=== PATIENT | female | born 1975 | race Caucasian/White ===

== ENCOUNTER → 2016-10-01 | Outpatient (CLI) | payer OTHER ==
--- OUTSIDE RECORDS SUMMARY | 2016-10-01 12:03 | XMS REPORT ---
Author Author ANDREA DELONG e[employer] Address Unknown Phone Unavailable Care Team Providers Care Dope Pourer Name Role Phone ANDREA DELONG Unavailable Allergies, Adverse Reactions, Alerts Substance Reaction Event Type Ambien vomiting Drug Allergy Problems Problem Type Condition Code Onset Dates Condition Status Assessment Back pain M54.9 Active Assessment HTN (hypertension) I10 Active Assessment Depression with anxiety F41.8 Active Problem Depression with anxiety F41.8 Active Problem HTN (hypertension) I10 Active Problem Anxiety disorder, unspecified F41.9 Active Problem Migraine 346.90 Active Problem Essential hypertension, malignant 401.0 Active Problem Migraine G43.909 Active Problem Back pain M54.9 Active Medications Medication Code System Code Instructions Start Date End Date Status Dosage Baclofen [facility] [address]-86 10 MG Orally Three times a day as needed for back spasms Jul 19, 2015 1 tablet with food or milk Pristiq [facility] [address]-88 50 MG Orally Once a day Jul 19, 2015 1 tablet Pravastatin Sodium [facility] [address]-02 20 MG Orally Once a day Jul 14, 2015 1 tablet Xpfeklzrjt-KHCX-Efrvkaga [facility] [address]-43 50-325-40 MG Orally at onset of headache may repeat in 2hrs max of 6 tablets in 24hrs 1 tablet Topamax [facility] [address]-12 25 MG Orally Twice a day April 18, 2015 1 tablet Lisinopril [facility] [address]-90 10 MG Orally Once a day Jul 12, 2015 1 tablet Gabapentin [facility] [address]-54 300 MG Orally Three times a day Jul 12, 2015 1 capsule Cholecalciferol [facility] [address] UNIT Orally once weekly Jul 14, 2015 Oct 06, 2015 1 tablet Levothyroxine Sodium [facility] [address]-53 75 MCG Orally Once a day Jul 14, 2015 1 tablet Omeprazole [facility] [address]-04 20 MG Orally Once a day 1 capsule Procedures Procedure Coding System Code Date Office Visit, Est Pt., Level 3 CPT-4 38388 Jul 19, 2015 URINALYSIS, AUTO, W/O SCOPE CPT-4 67402 Jul 19, 2015 Vital Signs Date/Time: Jul 19, 2015 Temperature 99.3 F Weight 458.4 lbs Height 64.5 in BMI 77.46 Index Blood Pressure Diastolic 80 mmHg Blood Pressure Systolic 128 mmHg Cardiac Monitoring Heart Rate 88 bpm Results Name Result Date Reference Range Unit Abnormality Flag UA LONG DIP (IN HOUSE) Summary Purpose eClinicalWorks Submission
--- NOTE | 2016-10-02 19:31 | Diagnostic Imaging Report ---
Bilateral screening mammogram. The current study was also evaluated with a Computer Aided Detection (CAD) system. INDICATION: Screening. No current complaints stated on the questionnaire. COMPARISON: None. This is a baseline study. FINDINGS: The breasts are composed of scattered fibroglandular densities. There are no masses, architectural distortion, or suspicious cluster of calcification. IMPRESSION: No mammographic evidence of malignancy. Annual screening mammograms recommended. ACR BI-RADS Category 1: Negative. Result letter will be mailed to the patient. Note: At least 10% of breast cancer is not imaged by mammography. Dictated by: Dictated on workstation # [id number]
== END ==
LOC: RAD 12:00
PROVIDERS: ATTEND Nurse Practitioner Adult Health
DX: Z12.31 Encounter for screening mammogram for malignant neoplasm of breast (principal)

== ENCOUNTER 2022-08-11 22:07 | Inpatient (IN) | payer OTHER ==
[~2022-08-11] VITALS: Ht 162.6 cm; Wt 189.9 kg
[2022-08-11 23:38] LABS: ALBUMIN 3.1 GM/DL (3.2-4.5)
[2022-08-11 23:41] LABS: BASOPHILS # (AUTO) 0.1 10^3/uL (0.0-0.1); BASOPHILS % (AUTO) 1 % (0-10); EOSINOPHILS # (AUTO) 0.1 10^3/uL (0.0-0.3); EOSINOPHILS % (AUTO) 1 % (0-10); HEMATOCRIT 46 % (35-52); HEMOGLOBIN 15.4 g/dL (11.5-16.0); LYMPHOCYTES % (AUTO) 20 % (12-44); MEAN CORPUSCULAR HEMOGLOBIN 28 pg (25-34); MEAN CORPUSCULAR HGB CONC 34 g/dL (32-36); MEAN CORPUSCULAR VOLUME 82 fL (80-99); MEAN PLATELET VOLUME 11.6 fL (9.0-12.2); MONOCYTES # (AUTO) 1.1 10^3/uL (0.0-1.0); MONOCYTES % (AUTO) 11 % (0-12); NEUTROPHILS # (AUTO) 6.7 10^3/uL (1.8-7.8); NEUTROPHILS % (AUTO) 67 % (42-75); PLATELET COUNT 318 10^3/uL (130-400); TOTAL PROTEIN 7.2 GM/DL (6.4-8.2)
[2022-08-11 23:42] LABS: PROTHROMBIN TIME PATIENT 13.8 SEC (12.2-14.7)
[2022-08-11 23:44] LABS: CREATININE SERUM 1.11 MG/DL (0.60-1.30)
[2022-08-11 23:47] LABS: MAGNESIUM 1.4 MG/DL (1.6-2.4)
[2022-08-12] LABS: POTASSIUM 2.5 MMOL/L (3.6-5.0)
--- NOTE | 2022-08-12 00:54 | ED Syncope ---
General Chief Complaint: Dizziness/Syncope Stated Complaint: WEAKNESS Nursing Triage Note: Pt to ED 4 via EMS. [facility] family when she felt dizzy and passed out. Pt reports LOC, states and son lowered her to floor, denies pain, states she is tingling all over. Source of Information: Patient History of Present Illness Date Seen by Provider: Aug 11, 2022 Time Seen by Provider: 23:25 Initial Comments This 47-year-old woman presents to the emergency room via EMS after having a syncopal episode at the [facility]. She does not recall the incident but does note feeling dizzy just prior to that. Earlier in the day she had felt short of breath. She denies having any chest pain. She gives a history of significant gastrointestinal problems including frequent nausea and vomiting which she relates to initiation of Ozempic earlier in the year. She has been feeling ill since March. Problem started shortly after beginning Ozempic and have continued long after stopping. She has required medical attention for severe electrolyte disturbances in the recent past. She has trouble with eating and drinking causing significant unintentional weight loss. She has no known cardiac disease or history of arrhythmias. She denies any chest pain at this time. She has some minor pain around her coccyx and her lower back. reports she was guided to the floor. She did not strike her head or neck. The syncope was jaycee ef. She does not believe any of her injuries are significant enough to require imaging. Allergies and Home Medications Allergies Coded Allergies: NKANo Known Allergies (Verified Allergy, Unknown, 03/11/07) Patient Home Medication List Home Medication List Reviewed: Yes Review of Systems Constitutional: see HPI, weakness EENTM: no symptoms reported Respiratory: see HPI Cardiovascular: see HPI Gastrointestinal: see HPI Genitourinary: no symptoms reported : No Musculoskeletal: see HPI Skin: no symptoms reported Psychiatric/Neurological: No Symptoms Reported Past Tcdyrpm-Gqzyaj-Urweko Hx Patient Social History Tobacco Use?: No Smoking Status: Never a Smoker Smokeless Tobacco Frequency: Never a User Use of E-Cig and/or Vaping dev: No Use of E-Cig and/or Vaping Chaz: Never a User Substance use?: No Alcohol Use?: No Pt feels they are or have been: No Immunizations Up To Date Influenza Vaccine Up-to-Date: No; Not Current First/Initial COVID19 Vaccinat: 2020 COVID19 Vaccine [place] Tender: DSTLD Past Medical History Surgeries: Yes (Cyst removed from back and knee) Section Respiratory: No Cardiac: No Neurological: No : No Last Menstrual Period: Jul 01, 2022 Genitourinary: No Gastrointestinal: No Musculoskeletal: No Endocrine: Yes Hypothyroidsim, Diabetes, Non-Insulin dep HEENT: No Cancer: No Psychosocial: No Physical Exam Vital Signs Vital Signs - First Documented 08/11/22 22:10 Temp 35.3 Pulse 57 Resp 16 B/P (MAP) 108/54 (72) Pulse Ox 99 O2 Delivery Room Air Capillary Refill : Height, Weight, BMI Height: '" Weight: lbs. oz. kg; 65.00 BMI Method: General Appearance: No Apparent Distress, WD/WN, Obese HEENT: PERRL/EOMI, Normal ENT Inspection Neck: Normal Inspection; No JVD Cardiovascular: Regular Rate, Rhythm, No Edema, No Murmur Respiratory: Lungs Clear, Normal Breath Sounds, No Accessory Muscle Use Gastrointestinal: Normal Bowel Sounds, Soft; No Distended; Tenderness (Very slight tenderness in the central abdomen) Back: Normal Inspection, Vertebral Tenderness (Slight tenderness over the lumbar region) Extremities: Normal Inspection, No Pedal Edema Neurologic/Psychiatric: Alert, Oriented x3, No Motor/Sensory Deficits, Normal Mood/Affect, 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 Cranial Nerves: Normal Hearing, Normal Speech, PERRL Motor/Sensory: No Motor Deficit, No Sensory Deficit Skin: Normal Color, Warm/Dry Progress/Results/Core Measures Results/Orders Lab Results Laboratory Tests Test 08/11/22 22:20 08/12/22 01:12 Range/Units White Blood Count 10.0 4.3-11.0 10^3/uL Red Blood Count 5.58 H 3.80-5.11 10^6/uL Hemoglobin 15.4 11.5-16.0 g/dL Hematocrit 46 35-52 % Mean Corpuscular Volume 82 80-99 fL Mean Corpuscular Hemoglobin 28 25-34 pg Mean Corpuscular Hemoglobin Concent 34 32-36 g/dL Red Cell Distribution Width 16.3 H 10.0-14.5 % Platelet Count 318 130-400 10^3/uL Mean Platelet Volume 11.6 9.0-12.2 fL Immature Granulocyte % (Auto) 0 % Neutrophils (%) (Auto) 67 42-75 % Lymphocytes (%) (Auto) 20 12-44 % Monocytes (%) (Auto) 11 0-12 % Eosinophils (%) (Auto) 1 0-10 % Basophils (%) (Auto) 1 0-10 % Neutrophils # (Auto) 6.7 1.8-7.8 10^3/uL Lymphocytes # (Auto) 2.0 1.0-4.0 10^3/uL Monocytes # (Auto) 1.1 H 0.0-1.0 10^3/uL Eosinophils # (Auto) 0.1 0.0-0.3 10^3/uL Basophils # (Auto) 0.1 0.0-0.1 10^3/uL Immature Granulocyte # (Auto) 0.0 0.0-0.1 10^3/uL Prothrombin Time 13.8 12.2-14.7 SEC INR Comment 1.0 0.8-1.4 Activated Partial Thromboplast Time 28 24-35 SEC Sodium Level 136 135-145 MMOL/L Potassium Level 2.5 *L 3.6-5.0 MMOL/L Chloride Level 86 L 98-107 MMOL/L Carbon Dioxide Level 28 21-32 MMOL/L Anion Gap 22 H 5-14 MMOL/L Blood Urea Nitrogen 9 7-18 MG/DL Creatinine 1.11 0.60-1.30 MG/DL Estimat Glomerular Filtration Rate 62 BUN/Creatinine Ratio 8 Glucose Level 165 H 70-105 MG/DL Calcium Level 9.0 8.5-10.1 MG/DL Corrected Calcium 9.7 8.5-10.1 MG/DL Magnesium Level 1.4 L 1.6-2.4 MG/DL Total Bilirubin 2.0 H 0.1-1.0 MG/DL Aspartate Amino Transf (AST/SGOT) 40 H 5-34 U/L Alanine Aminotransferase (ALT/SGPT) 22 0-55 U/L Alkaline Phosphatase 72 40-136 U/L Myoglobin 186.3 H 10.0-92.0 NG/ML Troponin I 0.030 H < 0.028 <0.028 NG/ML Total Protein 7.2 6.4-8.2 GM/DL Albumin 3.1 L 3.2-4.5 GM/DL Serum Alcohol < 10 <10 MG/DL Thyroid Stimulating Hormone (TSH) 2.17 0.35-4.94 UIU/ML Free Thyroxine 1.03 0.70-1.48 NG/DL My Orders Orders - YASMINE WASHBURN MD Ekg Tracing (08/11/22 22:38) Cbc With Automated Diff (08/11/22:) Magnesium (08/11/22) Comprehensive Metabolic Panel (08/11/22) Myoglobin Serum (08/11/22) Protime With Inr (08/11/22) Partial Thromboplastin Time (08/11/22) O2 (08/11/22) Monitor-Rhythm Ecg Trace Only (08/11/22) Lipid Panel (08/12/22 06:00) Ed Iv/Invasive Line Start (08/11/22:) Troponin I [place] (08/11/22:) Alcohol (08/11/22) Drug Screen Stat (Urine) (08/11/22) Chest 1 View, Ap/Pa Only (08/12/22 00:01) Potassium Cl 10meq/50ml Ivpb (Kcl 10 Meq (08/12/22 01:00) Ns Iv 1000 Ml (Sodium Chloride 0.9%) (08/12/22 01:00) Magnesium 1 Gm/100 Ml Ivpb (Magnesium [place] (08/12/22 01:00) Thyroid Stimulating Hormone (08/12/22 01:19) Troponin I [place] (08/12/22 01:25) Free T4 (Free Thyroxine) (08/12/22 01:19) Potassium Cl 10meq/50ml Ivpb (Kcl 10 Meq (08/12/22 02:00) Medications Given in ED Current Medications Medications Dose Ordered Sig/Anel Route Start Time Stop Time Status Last Admin Dose Admin Magnesium Sulfate/ Dextrose 100 ml @ 100 mls/hr ONCE ONCE IV 08/12/22 01:00 08/12/22 01:59 DC 08/12/22 01:11 100 MLS/HR Potassium Chloride 50 ml @ 50 mls/hr ONCE ONCE IV 08/12/22 01:00 08/12/22 01:59 DC 08/12/22 01:11 50 MLS/HR Potassium Chloride 50 ml @ 50 mls/hr ONCE ONCE IV 08/12/22 02:00 08/12/22 02:59 DC 08/12/22 02:15 50 MLS/HR Vital Signs/I&O 08/11/22 22:10 Temp 35.3 Pulse 57 Resp 16 B/P (MAP) 108/54 (72) Pulse Ox 99 O2 Delivery Room Air Blood Pressure Mean: 72 Progress Progress Note : Progress Note Patient was found to have severe electrolyte abnormalities with hypokalemia and hypomagnesemia. Replacement was started in the emergency room. She received potassium 20 mEq by IV route and magnesium sulfate 1 g by IV route. Electrolyte replacement was ordered to continue after admission. Initial troponin was slightly above the detectable range. Repeat troponin was negative. Patient was ultimately admitted for further monitoring, electrolyte replacement, and cardiology consultation. She had no further syncopal events in the emergency room. We discussed CODE STATUS and she wishes to remain full code. Initial ECG Impression Date: Aug 11, 2022 Initial ECG Impression Time: 22:46 Initial ECG Rate: 67 Initial ECG Rhythm: Normal Sinus Comment Sinus rhythm with no ST elevation or depression. No abnormal intervals. Minimal left axis deviation. Diagnostic Imaging Diagonstic Imaging: Xray Plain Films/CT/US/NM/MRI: chest Comments Chest x-ray viewed by me. Report not yet available. No acute abnormalities appreciated. Departure Communication (Admissions) Time/Spoke to Admitting Phy: 02:40 Dr. Dexter Impression Primary Impression: Syncope Qualified Codes: R55 - Syncope and collapse Additional Impressions: Hypokalemia Hypomagnesemia Nausea & vomiting Qualified Codes: R11.2 - Nausea with vomiting, unspecified Disposition: ADMITTED INPATIENT Condition: Improved Admissions Decision to Admit Reason: Admit from ER (General) Decision to Admit/Date: Aug 12, 2022 Time/Decision to Admit Time: 02:40 Departure-Patient Inst. Referrals: STACI ROCA DO (PCP) Primary Care Physician VENTURA ESPARZA (Family) Primary Care Physician Copy Copies To 1: WILBUR ALBRIGHT MD, JOSHUA T MD Aug 12, 2022 00:54
[2022-08-12] MEDS ORDERED: MAGNESIUM 1 GM/100 ML IVPB 100 ML IV ONE (01:00)
[2022-08-12] MEDS ORDERED: NS IV 1000 ML 1,000 ML IV SCH (01:00)
[2022-08-12] MEDS ORDERED: POTASSIUM CL 10MEQ/50ML IVPB 50 ML IV ONE ×2 (01:00→02:00)
[2022-08-12 02:00] LABS: FREE T4 (FREE THYROXINE) 1.03 NG/DL (0.70-1.48)
[2022-08-12] MEDS ORDERED: NS IV 1000 ML 1,000 ML ONE (02:58)
[2022-08-12] MEDS ORDERED: NS IV 1000 ML 1,000 ML IV ONE ×2 (03:00→07:58)
[2022-08-12] MEDS ORDERED: fentaNYL INJ 100 MCG/2 ML AMP ONE ×2 (03:59→04:39)
[2022-08-12 04:25] LABS: BASOPHILS # (AUTO) 0.1 10^3/uL (0.0-0.1); BASOPHILS % (AUTO) 1 % (0-10); EOSINOPHILS # (AUTO) 0.1 10^3/uL (0.0-0.3); EOSINOPHILS % (AUTO) 0 % (0-10); HEMATOCRIT 44 % (35-52); HEMOGLOBIN 14.7 g/dL (11.5-16.0); LYMPHOCYTES # (AUTO) 8.1 10^3/uL (1.0-4.0); LYMPHOCYTES % (AUTO) 32 % (12-44); MEAN CORPUSCULAR HEMOGLOBIN 28 pg (25-34); MEAN CORPUSCULAR HGB CONC 33 g/dL (32-36); MEAN CORPUSCULAR VOLUME 85 fL (80-99); MEAN PLATELET VOLUME 11.3 fL (9.0-12.2); MONOCYTES % (AUTO) 4 % (0-12); NEUTROPHILS # (AUTO) 14.9 10^3/uL (1.8-7.8); NEUTROPHILS % (AUTO) 58 % (42-75); PLATELET COUNT 234 10^3/uL (130-400); WHITE BLOOD COUNT 25.5 10^3/uL (4.3-11.0)
[2022-08-12 04:33] LABS: ALBUMIN 2.7 GM/DL (3.2-4.5)
[2022-08-12 04:34] LABS: CALCIUM 8.5 MG/DL (8.5-10.1)
[2022-08-12 04:35] LABS: TOTAL PROTEIN 6.2 GM/DL (6.4-8.2)
[2022-08-12 04:37] LABS: BILIRUBIN,TOTAL 1.7 MG/DL (0.1-1.0); TRIGLYCERIDES 236 MG/DL (<150); VLDL CHOLESTEROL 47 MG/DL (5-40)
[2022-08-12 04:39] LABS: CREATININE SERUM 1.2 MG/DL (0.60-1.30)
[2022-08-12 04:42] LABS: CHOLESTEROL 139 MG/DL (< 200); MAGNESIUM 2.7 MG/DL (1.6-2.4)
[2022-08-12 04:43] LABS: HDL CHOLESTEROL 39 MG/DL (40-60)
[2022-08-12] MEDS: fentaNYL INJ 100 MCG/2 ML AMP IVP PRN ×2 (04:43→11:12)
[2022-08-12] MEDS: POTASSIUM CL 10 MEQ/50 ML IVPB (PRE-MIX) IV SCH ×3 (04:46→06:36)
[2022-08-12] MEDS: NS IV 1000 ML 1,000 ML IV SCH ×2 (04:46→09:59)
[2022-08-12] MEDS: ONDANSETRON 4 MG/2 ML (SDV) Z0FRAN IV PRN ×2 (04:49→08:52)
[2022-08-12] MEDS: MAGNESIUM 1 GM/D5W 100 ML IVPB IV SCH ×3 (04:53→06:45)
[2022-08-12 05:03] LABS: POTASSIUM 2.5 MMOL/L (3.6-5.0)
[2022-08-12 05:04] LABS: BAND NEUTROPHILS 14 %; LYMPHOCYTES % (MANUAL) 35 %; NEUTROPHILS % (MANUAL) 40 %
--- NOTE | 2022-08-12 05:06 | History & Physical-Hospitalist ---
History of Present Illness HPI/Chief Complaint Mariana Hilliard is a 47 year old female with PMH T2DM, super obesity, who presented with syncope. She was feeling lightheaded and dizzy prior to the episode. She denies chest pain and palpitations. She has had chronic nausea and vomiting. She was admitted to the medical floor with nausea, vomiting, and presumed syncope due to orthostasis. She was found to have electrolyte abnormalities and this was supplemented in the ER. After arriving to the floor, she suffered a VFib arrest. ROSC was obtained. She reports feeling lightheaded, dizzy, and "hot" prior to the episode. She is still having nausea upon my exam. She reports still feeling hot. Her nurse says the heat was turned up in her ICU room prior to her arrival and the thermostat has been adjusted. She is having some chest pain now. She is not short of breath. She denies abdominal pain. She has a nephew who had a sudden cardiac . Source: patient Exam Limitations: no limitations Date Seen 08/12/22 Time Seen by a Provider: 04:45 Attending Physician No,Local Physician PCP Admitting Physician: Ailin Bear MD Attending Physician: Ailin Bear MD Referring Physician Date of Admission Aug 12, 2022 at 02:40 Home Medications & Allergies Home Medications Reviewed patient Home Medication Reconciliation performed by pharmacy medication reconciliations gastrointestinal technician and/or nursing. Patients Allergies have been reviewed. Allergies Allergies Coded Allergies NKANo Known Allergies (Verified Allergy, Unknown, 03/11/07) Past Mgygkey-Vahfhx-Kvzvqb Hx Patient Social History Tobacco Use?: No Smoking Status: Never a Smoker Smokeless Tobacco Frequency: Never a User Use of E-Cig and/or Vaping dev: No Use of E-Cig and/or Vaping Chaz: Never a User Substance use?: No Alcohol Use?: No Pt feels they are or have been: No Immunizations Up To Date First/Initial COVID19 Vaccinat: 2020 Current Status Advance Directives: No Communicates: Verbally Primary Language: Ecuadorean Preferred Spoken Language: Ecuadorean Is interpretation needed?: No Past Medical History Diabetes, Non-Insulin dep Family Medical History Reviewed and Corrections made Heart Disease Review of Systems Constitutional: malaise EENTM: no symptoms reported Respiratory: no symptoms reported Cardiovascular: chest pain Gastrointestinal: nausea, vomiting Physical Exam Physical Exam Vital Signs Vital Signs - First Documented 08/11/22 22:10 Temp 35.3 Pulse 57 Resp 16 B/P (MAP) 108/54 (72) Pulse Ox 99 O2 Delivery Room Air Capillary Refill : Height, Weight, BMI Height: '" Weight: lbs. oz. kg; 65.00 BMI Method: General Appearance: Moderate Distress (uncomfortable, holding basin), Obese HEENT: PERRL/EOMI, Pharynx Normal Neck: Normal Inspection, Supple Respiratory: Lungs Clear, Normal Breath Sounds, No Respiratory Distress Cardiovascular: Regular Rate, Rhythm, No Murmur Gastrointestinal: Normal Bowel Sounds, Non Tender, Soft Extremity: Normal Inspection, Pedal Edema Neurologic/Psychiatric: Alert, No Motor/Sensory Deficits, Other (flat affect) Skin: Normal Color, Warm/Dry Results Results/Procedures Labs Laboratory Tests 08/11/22 22:20 08/12/22 04:10 Patient resulted labs reviewed. Imaging: Reviewed Imaging Films, Reviewed Imaging Report Assessment/Plan Admission Diagnosis Cardiac arrest Admission Status: Inpatient Order (span 2 midnights) Reason for Inpatient Admission: Ventricular fibrillatin Cardiogenic syncope Assessment and Plan Cardiac arrest Ventricular fibrillation Cardiogenic syncope Nausea and vomiting Hypokalemia Hypomagnesemia Elevated troponin Moderate electrolyte abnormalities on arrival, supplementaion began in ER EKG reviewed, no ST/CO/QTc abnormalities noted VFib arrest after arrival to medical floor ROSC obtained Transferred to ICU Repeat labs, continue electrolyte replacement Cardiology consulted, planning for left heart cath Antiemetics as needed Dr. Mccall updated family and TeleICU Leukocytosis Likely reactive No evidence of infection at this time, monitor T2DM Super obesity DVT prophylaxis: Lovenox Critical Care Critically Ill Patient Diagnosis/Problems Diagnosis/Problems (1) Ventricular fibrillation Status: Acute (2) Cardiac arrest Status: Acute (3) Syncope Status: Acute Qualifiers: Syncope type: unspecified Qualified Codes: R55 - Syncope and collapse (4) Nausea & vomiting Status: Acute Qualifiers: Vomiting type: unspecified Qualified Codes: R11.2 - Nausea with vomiting, unspecified (5) Hypokalemia Status: Acute (6) Hypomagnesemia Status: Acute (7) Elevated troponin Status: Acute (8) T2DM (type 2 diabetes mellitus) Status: Chronic (9) Super obesity Status: Chronic AILIN BEAR MD Aug 12, 2022 05:06
[2022-08-12 05:07] LABS: ATYPICAL LYMPHOCYTES 5 %; MONOCYTES % (MANUAL) 3 %; PROLYMPHOCYTE % 3 %
[2022-08-12 05:08] LABS: RBC MORPH NORMAL
--- NOTE | 2022-08-12 05:12 | Inpatient Code Blue ---
General Chief Complaint: Dizziness/Syncope Stated Complaint: SYNCOPE Nursing Triage Note: Pt to ED 4 via EMS. [place] when she felt dizzy and passed out. Pt reports LOC, states and son lowered her to floor, denies pain, states she is tingling all over. History of Present Illness Date Seen by Provider: Aug 12, 2022 Time Seen by Provider: 03:35 Initial Comments CODE BLUE was paged at 03:35. I responded immediately to the page. Upon entering the room patient was receiving CPR. After being roomed on the fourth floor, patient complained that she did not feel well and was dizzy. She then became unresponsive. CODE BLUE page was activated. Allergies and Home Medications Allergies Coded Allergies: NKANo Known Allergies (Verified Allergy, Unknown, 03/11/07) semaglutide (Verified Adverse Reaction, Severe, Vomiting, 08/12/22) Patient Home Medication List Home Medication List Reviewed: Yes Physical Exam Vital Signs Vital Signs - First Documented 08/11/22 22:10 Temp 35.3 Pulse 57 Resp 16 B/P (MAP) 108/54 (72) Pulse Ox 99 O2 Delivery Room Air Capillary Refill : Height, Weight, BMI Height: '" Weight: lbs. oz. kg; 65.00 BMI Method: General Appearance: mild distress, other (Initially in cardiac arrest and unresponsive) Ears, Nose, Throat: other (Bleeding at the right upper lip) Neck: normal inspection Respiratory: No crackles, No wheezing; other (Increased work of breathing) Cardiovascular: No JVD; other (Pulse very difficult to palpate) Gastrointestinal: soft; No distended; other Extremities: normal inspection Neurologic/Psychiatric: alert, other (Disoriented and agitated. Follow some instructions. Making some comprehensible comments. Seems to move all extremities.) Skin: normal color, warm/dry Critical Care Note Critical Care Start Time: 03:35 Stop Time: 04:25 Total Time (minutes) 50 Progress CPR was in progress. Epinephrine 1 mg had been administered and sodium bicarb was being administered. Breathing was being assisted with BVM. Patient was found to be in ventricular fibrillation at pulse check. She was defibrillated at 03:38. She was noted to have some vocalizations and movements. Pulse check was performed again and she was still in ventricular fibrillation. CPR was continued and a second dose of epinephrine was administered. Amiodarone 300 mg bolus was also administered followed by magnesium sulfate 2 g. A third dose of epinephrine was administered. Pulse check at 03:42 revealed an arrhythmia with structured QRS complexes. EKG at 03:46 revealed an inconclusive rhythm. Patient was demonstrating vocalizations and independent respirations pulse was not very difficult to palpate but patient was clearly perfusing as she continued to breathe, have movement, and vocalize. Doppler was found at the carotid out 03:48. Case was reviewed with Dr. Shankar. He recommended transferring to the ICU and obtaining another EKG before determining if intubation and/or emergent angiography are warranted. Patient continued to move and breathe. Doppler was found at the femoral pulse. Patient was transferred to the ICU at 03:54. Patient was found to have sinus tachycardia on the EKG. Activity continued to increase. Potassium replacement was resumed. Fentanyl 50 mcg IV was given for pain. Report was given to eICU and Dr. Dexter. Has been was notified of the situation and I answered his questions. Initial blood pressure demonstrated hypotension, but that resolved. Pressors were not needed. Progress/Results/Core Measures Results/Orders Lab Results Laboratory Tests Test 08/11/22 22:20 08/12/22 01:12 08/12/22 04:10 Range/Units White Blood Count 10.0 25.5 H 4.3-11.0 10^3/uL Red Blood Count 5.58 H 5.22 H 3.80-5.11 10^6/uL Hemoglobin 15.4 14.7 11.5-16.0 g/dL Hematocrit 46 44 35-52 % Mean Corpuscular Volume 82 85 80-99 fL Mean Corpuscular Hemoglobin 28 28 25-34 pg Mean Corpuscular Hemoglobin Concent 34 33 32-36 g/dL Red Cell Distribution Width 16.3 H 16.1 H 10.0-14.5 % Platelet Count 318 234 130-400 10^3/uL Mean Platelet Volume 11.6 11.3 9.0-12.2 fL Immature Granulocyte % (Auto) 0 5 % Neutrophils (%) (Auto) 67 58 42-75 % Lymphocytes (%) (Auto) 20 32 12-44 % Monocytes (%) (Auto) 11 4 0-12 % Eosinophils (%) (Auto) 1 0 0-10 % Basophils (%) (Auto) 1 1 0-10 % Neutrophils # (Auto) 6.7 14.9 H 1.8-7.8 10^3/uL Lymphocytes # (Auto) 2.0 8.1 H 1.0-4.0 10^3/uL Monocytes # (Auto) 1.1 H 1.0 0.0-1.0 10^3/uL Eosinophils # (Auto) 0.1 0.1 0.0-0.3 10^3/uL Basophils # (Auto) 0.1 0.1 0.0-0.1 10^3/uL Immature Granulocyte # (Auto) 0.0 1.4 H 0.0-0.1 10^3/uL Prothrombin Time 13.8 12.2-14.7 SEC INR Comment 1.0 0.8-1.4 Activated Partial Thromboplast Time 28 24-35 SEC Sodium Level 136 139 135-145 MMOL/L Potassium Level 2.5 *L 2.5 *L 3.6-5.0 MMOL/L Chloride Level 86 L 90 L 98-107 MMOL/L Carbon Dioxide Level 28 16 L 21-32 MMOL/L Anion Gap 22 H 33 H 5-14 MMOL/L Blood Urea Nitrogen 9 11 7-18 MG/DL Creatinine 1.11 1.20 0.60-1.30 MG/DL Estimat Glomerular Filtration Rate 62 56 BUN/Creatinine Ratio 8 9 Glucose Level 165 H 189 H 70-105 MG/DL Calcium Level 9.0 8.5 8.5-10.1 MG/DL Corrected Calcium 9.7 9.5 8.5-10.1 MG/DL Magnesium Level 1.4 L 2.7 H 1.6-2.4 MG/DL Total Bilirubin 2.0 H 1.7 H 0.1-1.0 MG/DL Aspartate Amino Transf (AST/SGOT) 40 H 744 H 5-34 U/L Alanine Aminotransferase (ALT/SGPT) 22 257 H 0-55 U/L Alkaline Phosphatase 72 95 40-136 U/L Myoglobin 186.3 H 10.0-92.0 NG/ML Troponin I 0.030 H < 0.028 0.048 H <0.028 NG/ML Total Protein 7.2 6.2 L 6.4-8.2 GM/DL Albumin 3.1 L 2.7 L 3.2-4.5 GM/DL Serum Alcohol < 10 <10 MG/DL Thyroid Stimulating Hormone (TSH) 2.17 0.35-4.94 UIU/ML Free Thyroxine 1.03 0.70-1.48 NG/DL Neutrophils % (Manual) 40 % Lymphocytes % (Manual) 35 % Prolymphocyte % 3 % Monocytes % (Manual) 3 % Band Neutrophils 14 % Atypical Lymphocytes 5 % Blood Morphology Comment NORMAL Phosphorus Level 4.0 2.3-4.7 MG/DL Triglycerides Level 236 H <150 MG/DL Cholesterol Level 139 < 200 MG/DL LDL Cholesterol Direct 82 1-129 MG/DL VLDL Cholesterol 47 H 5-40 MG/DL HDL Cholesterol 39 L 40-60 MG/DL My Orders Orders - YASMINE WASHBURN MD Ekg Tracing (08/11/22 22:38) Cbc With Automated Diff (08/11/22:) Magnesium (08/11/22:) Comprehensive Metabolic Panel (08/11/22) Myoglobin Serum (08/11/22) Protime With Inr (08/11/22) Partial Thromboplastin Time (08/11/22:) O2 (08/11/22:) Monitor-Rhythm Ecg Trace Only (08/11/22) Lipid Panel (08/12/22 06:00) Ed Iv/Invasive Line Start (08/11/22:) Troponin I Brea (08/11/22:) Alcohol (08/11/22:) Drug Screen Stat (Urine) (08/11/22:) Chest 1 View, Ap/Pa Only (08/12/22 00:01) Potassium Cl 10meq/50ml Ivpb (Kcl 10 Meq (08/12/22 01:00) Ns Iv 1000 Ml (Sodium Chloride 0.9%) (08/12/22 01:00) Magnesium 1 Gm/100 Ml Ivpb (Magnesium [place] (08/12/22 01:00) Thyroid Stimulating Hormone (08/12/22:19) Troponin I Brea (08/12/22:25) Free T4 (Free Thyroxine) (08/12/22 01:19) Potassium Cl 10meq/50ml Ivpb (Kcl 10 Meq (08/12/22 02:00) Ns Iv 1000 Ml (Sodium Chloride 0.9%) (08/12/22 03:00) Ns Iv 1000 Ml (Sodium Chloride 0.9%) (08/12/22 02:58) Troponin I Brea (08/12/22 04:28) Ekg Tracing (08/12/22 04:28) Ekg Tracing (08/12/22 04:28) Fentanyl Inj (Sublimaze Injection) (08/12/22 04:45) Medications Given in ED Current Medications Medications Dose Ordered Sig/Anel Route Start Time Stop Time Status Last Admin Dose Admin Fentanyl Citrate 50 mcg ONCE PRN IVP 08/12/22 04:45 08/12/22 04:43 50 MCG Fentanyl Citrate 100 mcg STK-MED ONCE .ROUTE 08/12/22 03:59 08/12/22 04:01 DC 08/12/22 04:04 50 MCG Magnesium Sulfate/ Dextrose 100 ml @ 100 mls/hr ONCE ONCE IV 08/12/22 01:00 08/12/22 01:59 DC 08/12/22 01:11 100 MLS/HR Ondansetron HCl 4 mg Q4H PRN IV 08/12/22 03:45 08/12/22 04:49 4 MG Potassium Chloride 50 ml @ 50 mls/hr ONCE ONCE IV 08/12/22 01:00 08/12/22 01:59 DC 08/12/22 01:11 50 MLS/HR Potassium Chloride 50 ml @ 50 mls/hr ONCE ONCE IV 08/12/22 02:00 08/12/22 02:59 DC 08/12/22 02:15 50 MLS/HR Sodium Chloride 1,000 ml @ 200 mls/hr Q5H ONCE IV 08/12/22 03:00 08/12/22 07:59 08/12/22 03:01 200 MLS/HR Vital Signs/I&O 08/11/22 08/12/22 22:10 03:12 Temp 35.3 36.1 Pulse 57 64 Resp 16 16 B/P (MAP) 108/54 (72) 133/65 Pulse Ox 99 99 O2 Delivery Room Air Room Air Blood Pressure Mean: 87 Diagnostic Imaging Diagonstic Imaging: Xray Plain Films/CT/US/NM/MRI: chest Time of Consult: 02:40 YASMINE WASHBURN MD Aug 12, 2022 05:12
[2022-08-12] MEDS ORDERED: NS IV 500 ML 500 ML IV PRN (05:45)
[2022-08-12] MEDS: KCL 20 MEQ TAB (K-DUR) PO SCH (06:00)
[2022-08-12] MEDS: MAGNESIUM 1 GM/100 ML IVPB 100 ML IV SCH (06:00)
[2022-08-12] MEDS: POTASSIUM CL 10MEQ/50ML IVPB 50 ML IV SCH ×10 (06:00→22:53)
[2022-08-12] MEDS ORDERED: SODIUM BICARB 8.4% 50 MEQ/50 ML (ABBOTT) SYR INJ ONE (07:58)
[2022-08-12] MEDS ORDERED: AMIODARONE 150 MG/3 ML (CORDARONE) VIAL IV ONE (07:58)
[2022-08-12] MEDS ORDERED: MAGNESIUM SULF 5 GM/10 ML VIAL IV ONE (07:58)
[2022-08-12] MEDS ORDERED: EPINEPHrine 0.1 MG/ML 10 ML (HOSPIRA) SYR IJ ONE (07:58)
[2022-08-12] MEDS: ENOXAPARIN 60 MG/0.6 ML (LOVENOX) SYR SC SCH ×2 (08:27→20:55)
--- NOTE | 2022-08-12 08:31 | Diagnostic Imaging Report ---
INDICATION: Chest pain. Portable chest 12:15 AM Heart size and pulmonary vascularity are normal. Lungs are clear. There are no effusions or pneumothoraces. IMPRESSION: No acute abnormalities in the chest. Dictated by: Dictated on workstation # [id number]
--- NOTE | 2022-08-12 09:03 | Consultation-Cardiology ---
HPI-Cardiology Cardiology Consultation: Date of Consultation 08/12/22 Date of Admission 08/12/22 Attending Physician Susie,Local Physician Admitting Physician Admitting Physician: Reena Dexter MD Attending Physician: Reena Dexter MD Consulting Physician JASON ZENDEJAS JR, MD HPI: Time Seen by a Provider: 08:58 Chief Complaint: REASON FOR CONSULTATION: Status postcardiac arrest. I had the pleasure of seeing Valeria in the intensive care unit at [facility] in [place], [place] this morning. She has no known history of coronary artery disease. She has a history of type 2 diabetes mellitus and morbid obesity. [place] felt very [place]headed. The next thing she knew, she was laying on the floor with her and son holding her up. Bystanders called 911 and she was taken to the emergency room for further evaluation. She was found to have profound hypokalemia and hypomagnesemia. She was started on intravenous replacement therapy for these abnormalities and admitted to the medical floor. Soon after arriving on the medical floor, she became unresponsive. CPR and ACLS were administered. She was apparently found to be in ventricular fibrillation and was shocked several times. She had CPR for approximately 10-15 minutes. She then regained ROSC. She was hypotensive at that time and was given intravenous fluids and then transferred to the intensive care unit. She had also been given 300 mg of intravenous amiodarone during the code. This morning she is sitting up in bed and conversant. Her chest is sore from the CPR. She does have chronic dyspnea on exertion which she relates is due to her weight. She does not normally get chest discomfort. She has been having a lot of problems with nausea, vomiting and diarrhea, especially over the past 5 days. Her metformin was recently discontinued due to profound nausea yet the nausea persisted. She has some diffuse abdominal pain but feels like this is stress related to all the vomiting she has been doing. She denies paroxysmal nocturnal dyspnea or orthopnea. She does get some occasional palpitations from time to time with the sensation of skipped beats or fluttering but without associated complaints. She has chronic lightheaded spells. She did have a syncopal episode 2 weeks ago while she was laying on her sofa at home and did not seek medical attention at that time. She has had intermittent lower extremity edema and has been taking hydrochlorothiazide for this which helps. Because of the cardiac arrest, a cardiology consultation was requested. Certain portions of this document may have been dictated utilizing voice recognition technology. Inherent to this technology, typographical and grammatical errors may exist. As much as I am diligent to identify and correct these mistakes, some errors may remain in the document. Review of Systems-Cardiology Review of Systems : No Other comments Review of 10 organ systems is as per the history of present illness, otherwise negative. [id number] Hx Patient Social History Marrital Status: Employed/Student: employed Smoking Status: Never a Smoker Alcohol Use?: No Pt feels they are or have been: No Past Medical History PMH As described under Assessment. Family Medical History Family Medical History: Her father in his 70s from heart disease and she believes he had heart disease for 10-20 years prior to his . Her mother has a "weak" heart. Allergies and Home Medications Allergies Coded Allergies: NKANo Known Allergies (Verified Allergy, Unknown, 03/11/07) semaglutide (Verified Adverse Reaction, Severe, Vomiting, 08/12/22) Patient Home Medication List Home Medication List Reviewed: Yes Hydrochlorothiazide (Hydrochlorothiazide) 25 Mg Tablet, 25 MG PO DAILY, (Reported) Entered as Reported by: CLARA CARMONA on 08/12/221429 Last Action: Held Levothyroxine Sodium (Levothyroxine Sodium) 100 Mcg Tablet, 100 MCG PO DAILY, (Reported) Entered as Reported by: CLARA CARMONA on 08/12/221429 Last Action: Continued Multivitamin (Vitamins For Hair) 400 Mcg-400 Mcg Tablet, 1 EACH PO DAILY, (Reported) Entered as Reported by: CLARA CARMONA on 08/12/221429 Last Action: Held Omeprazole (Omeprazole) 20 Mg Tab.rap.dr, 20 MG PO DAILY PRN for HEARTBURN, (Reported) Entered as Reported by: CLARA CARMONA on 08/12/221429 Last Action: Converted Potassium Gluconate (Potassium Gluconate) 595 Mg (99 Mg) Tablet.er, 99 MG PO DAILY, (Reported) Entered as Reported by: CLARA CARMONA on 08/12/221429 Last Action: Held Pravastatin Sodium (Pravastatin Sodium) 40 Mg Tablet, 40 MG PO DAILY, (Reported) Entered as Reported by: CLARA STEINBERGNT on 08/12/22 1430 Last Action: Converted Exam Vital Signs Vital Signs Date Time Temp Pulse Resp B/P (MAP) Pulse Ox O2 Delivery O2 Flow Rate FiO2 08/12/22 15:00 71 16 110/69 (83) 100 Nasal Cannula 3.00 08/12/22 08:00 36.0 Physical Exam General: Alert. No acute distress. Well nourished and appears stated age. She is morbidly obese. She is wearing oxygen by nasal cannula. Eye: Extraocular movements are intact. Conjunctivae are clear. There are no xanthelasma. HENT: Normocephalic. Atraumatic. Carotid pulsations 2/2 without bruits. Neck: Jugular venous pressure does not appear elevated. No thyromegaly appreciated. Respiratory: Lungs are clear to auscultation. Respirations are non-labored. Breath sounds are equal. Symmetrical chest wall expansion. Cardiovascular: Normal rate. Regular rhythm. No murmur. No gallop. Point of maximal impulse is not appear displaced. Good pulses equal in all extremities. No edema. Gastrointestinal: Soft. Normal bowel sounds. Skin: Skin turgor is normal. There is no pallor. Musculoskeletal: No kyphosis or scoliosis appreciated. Neurologic: Alert and oriented to person, place, time. Cranial nerves 3-12 appear grossly intact. The patient has good motor tone strength in the upper and lower extremities bilaterally. Psychiatric: Cooperative. Appropriate mood & affect. Labs Laboratory Tests Test 08/11/22 22:20 08/12/22 01:12 08/12/22 04:10 08/12/22 10:48 Range/Units White Blood Count 10.0 25.5 H 4.3-11.0 10^3/uL Red Blood Count 5.58 H 5.22 H 3.80-5.11 10^6/uL Hemoglobin 15.4 14.7 11.5-16.0 g/dL Hematocrit 46 44 35-52 % Mean Corpuscular Volume 82 85 80-99 fL Mean Corpuscular Hemoglobin 28 28 25-34 pg Mean Corpuscular Hemoglobin Concent 34 33 32-36 g/dL Red Cell Distribution Width 16.3 H 16.1 H 10.0-14.5 % Platelet Count 318 234 130-400 10^3/uL Mean Platelet Volume 11.6 11.3 9.0-12.2 fL Immature Granulocyte % (Auto) 0 5 % Neutrophils (%) (Auto) 67 58 42-75 % Lymphocytes (%) (Auto) 20 32 12-44 % Monocytes (%) (Auto) 11 4 0-12 % Eosinophils (%) (Auto) 1 0 0-10 % Basophils (%) (Auto) 1 1 0-10 % Neutrophils # (Auto) 6.7 14.9 H 1.8-7.8 10^3/uL Lymphocytes # (Auto) 2.0 8.1 H 1.0-4.0 10^3/uL Monocytes # (Auto) 1.1 H 1.0 0.0-1.0 10^3/uL Eosinophils # (Auto) 0.1 0.1 0.0-0.3 10^3/uL Basophils # (Auto) 0.1 0.1 0.0-0.1 10^3/uL Immature Granulocyte # (Auto) 0.0 1.4 H 0.0-0.1 10^3/uL Prothrombin Time 13.8 12.2-14.7 SEC INR Comment 1.0 0.8-1.4 Activated Partial Thromboplast Time 28 24-35 SEC Sodium Level 136 139 135-145 MMOL/L Potassium Level 2.5 *L 2.5 *L 2.2 *L 3.6-5.0 MMOL/L Chloride Level 86 L 90 L 98-107 MMOL/L Carbon Dioxide Level 28 16 L 21-32 MMOL/L Anion Gap 22 H 33 H 5-14 MMOL/L Blood Urea Nitrogen 9 11 7-18 MG/DL Creatinine 1.11 1.20 0.60-1.30 MG/DL Estimat Glomerular Filtration Rate 62 56 BUN/Creatinine Ratio 8 9 Glucose Level 165 H 189 H 70-105 MG/DL Calcium Level 9.0 8.5 8.5-10.1 MG/DL Corrected Calcium 9.7 9.5 8.5-10.1 MG/DL Magnesium Level 1.4 L 2.7 H 1.6-2.4 MG/DL Total Bilirubin 2.0 H 1.7 H 0.1-1.0 MG/DL Aspartate Amino Transf (AST/SGOT) 40 H 744 H 5-34 U/L Alanine Aminotransferase (ALT/SGPT) 22 257 H 0-55 U/L Alkaline Phosphatase 72 95 40-136 U/L Myoglobin 186.3 H 10.0-92.0 NG/ML Troponin I 0.030 H < 0.028 0.048 H <0.028 NG/ML Total Protein 7.2 6.2 L 6.4-8.2 GM/DL Albumin 3.1 L 2.7 L 3.2-4.5 GM/DL Serum Alcohol < 10 <10 MG/DL Thyroid Stimulating Hormone (TSH) 2.17 0.35-4.94 UIU/ML Free Thyroxine 1.03 0.70-1.48 NG/DL Neutrophils % (Manual) 40 % Lymphocytes % (Manual) 35 % Prolymphocyte % 3 % Monocytes % (Manual) 3 % Band Neutrophils 14 % Atypical Lymphocytes 5 % Blood Morphology Comment NORMAL Phosphorus Level 4.0 2.3-4.7 MG/DL Triglycerides Level 236 H <150 MG/DL Cholesterol Level 139 < 200 MG/DL LDL Cholesterol Direct 82 1-129 MG/DL VLDL Cholesterol 47 H 5-40 MG/DL HDL Cholesterol 39 L 40-60 MG/DL Radiology ECHOCARDIOGRAM (08/12/2022): 1. This is a technically difficult study due to poor image quality secondary to patient's body habitus. Intravenous contrast was administered to enhance image quality. 2. Left ventricle: The left ventricle is mildly dilated. There is mild concentric hypertrophy. Systolic function is normal. The estimated ejection fraction is 55-60%. There are no regional wall motion abnormalities identified on this technically difficult study. Left ventricular diastolic function parameters are normal. 3. Right ventricle: The right ventricle is mildly dilated with a diameter of 3.7 cm in the parasternal long axis view. Systolic function is normal. TAPSE 2.8 cm. 4. Right atrium: The right atrium is mildly dilated with an area of 22 cm. 5. Pulmonary arteries: The estimated pulmonary artery systolic pressure is 31 mmHg assuming a right atrial pressure of 5 mmHg. ECG Impression ECG Comment Her initial electrocardiogram in the emergency room showed sinus rhythm with left anterior hemiblock and Q waves across the entire precordium. The more recent electrocardiogram from this morning shows a wide-complex tachycardia with a right bundle branch block pattern with again a possible old anterior infarct with anterior ST depression. In the most recent electrocardiogram from this morning shows sinus rhythm with frequent premature ventricular complexes, left anterior hemiblock, and possible old anterolateral myocardial infarction. Diagnosis/Problems Diagnosis/Problems (1) Cardiac arrest Status: Acute Assessment & Plan: Exact etiology unclear. She seems to be making a good neurologic recovery. She has a normal ejection fraction as noted on her echocardiogram earlier today. She had profound electrolyte abnormalities when she presented and I suspect that this may have caused ventricular fibrillation. At some point, we may want to consider an ischemic evaluation. We could certainly consider performing this as an outpatient after discharge. Given her morbid obesity, a nuclear stress test might be somewhat challenging to fit her inside the nuclear camera. (2) Ventricular fibrillation Status: Acute Assessment & Plan: As above, this occurred in the setting of profound hyp omagnesemia and hypokalemia. I suspect the electrolyte abnormalities caused to the ventricular fibrillation. (3) Elevated troponin Status: Acute Assessment & Plan: I suspect the mild elevation of the troponin level was related to her cardiac arrest and resuscitative efforts. (4) Morbid obesity Assessment & Plan: She needs to work on weight loss. She was counseled in this regard. JASON ZENDEJAS JR, MD Aug 12, 2022 09:03
[2022-08-12] MEDS ORDERED: KCL 20 MEQ TAB (K-DUR) PO NR ×2 (09:30→17:30)
--- NOTE | 2022-08-12 09:40 | Tele-ICU Consult ---
History of Present Illness History of Present Illness Date Seen by Provider: Aug 12, 2022 Time Seen by Provider: 09:39 Date of Admission (Tele-ICU Physician , consultation as per request of PCP Service provided via interactive audio and video telecommunications E-CARE system to a patient admitted to ICU bed in [facility]. Available chart/ vitals / labs / Images reviewed H&P is from ER notes Patient's information available about PMH, Shx, Fhx allergy reviewed inEMR. ROS as per chart and RN report Now in ICU, hemodynamically stable Video assessment done using teleICU camera, rest of exam as per RN Discussed with RN. Consultants: Hospital course: (08/12) 47y F passed out at [place] after feeling dizzy. Pt. states LOC and tingling all over. (K+2.5 and Mg 1.4) Replacements ordered. MED SURG admit with syncope, hypokalemia and hypomagnesemia. 08/12- TRANSFERRED to ICU stat for same post VFib/V Tach arrest on floor. Defibbed x 2. For possile CCL this am. Replacing Mg and K+. Pt. alert/awake. A/P VFib arrest. 08/12 ROSC was obtained - AA? , vitals stab;le - cards consulted Leukocytosis - most likely reactive Syncope , presumed cardiogenic - w/up as above N/V , reported chronic - ? DM gastroparesis - check hb1ac Electrolytes derangements ( devere hypoK and hypo Mg ) - replacing low K and Mg , repeat later Acidosis with aniomn gap - presumed post arrest DM II -ISS Obesity Lines : periph , (Central Line Necessity Reviewed) Tee: OG: Nutrition: po Analgesia: Anxiety/ delirium VTE Prophylaxis: anjelica 60 bid Stress Ulcer Prophylaxis: Glycemic Control: Plans in collaboration with bedside consultants and IM MDs. Discussed with RN to reach out if any questions or concerns A total of 33 minutes of critical care time was devoted to this patient today, required to treat and/or prevent further deterioration of critical care condition ( as above ) . I am remotely monitoring this patient from another state. I am unable to do the bedside exam, and history/physical and pertinent information is taken from other notes in the computer and bedside staff. . Allergies and Home Medications Allergies Coded Allergies: NKANo Known Allergies (Verified Allergy, Unknown, 03/11/07) semaglutide (Verified Adverse Reaction, Severe, Vomiting, 08/12/22) Past Medical/Social/Family Hx Patient Social History Marrital Status: Employed/Student: employed Tobacco Use?: No Smoking Status: Never a Smoker Smokeless Tobacco Frequency: Never a User Use of E-Cig and/or Vaping dev: No E-Cig and/or Vaping Freq: Never a User Substance use?: No Alcohol Use?: No Pt stated abuse/neglect: No Immunizations Up To Date Influenza Vaccine Up-to-Date: No; Not Current First/Initial COVID19 Vaccinat: 2020 Current Status Advance Directives: No Communicates: Verbally Primary Language: Nepali Preferred Spoken Language: Nepali Is interpretation needed?: No Review of Systems Constitutional: see HPI Focused Exam Height, Weight, BMI Height: '" Weight: lbs. oz. kg; 65.00 BMI Method: Exam Exam Patient acknowledged, consented, and participated in this virtual visit which was conducted using real time audio/video Vital Signs Date Time Temp Pulse Resp B/P (MAP) Pulse Ox O2 Delivery O2 Flow Rate FiO2 08/12/22 08:00 84 17 146/98 (114) 98 Nasal Cannula 2.00 08/12/22 08:00 36.0 08/12/22 07:26 73 08/12/22 07:15 80 22 131/93 (106) 99 Nasal Cannula 2.00 08/12/22 07:03 Nasal Cannula 2.00 08/12/22 07:00 103 17 189/124 (145) 97 Nasal Cannula 2.00 08/12/22 06:00 80 20 128/81 (97) 97 Nasal Cannula 2.00 08/12/22 05:45 76 25 113/71 (85) 98 Nasal Cannula 2.00 08/12/22 05:30 80 25 135/89 (104) 98 Nasal Cannula 2.00 08/12/22 05:15 84 24 117/70 (86) 98 Nasal Cannula 2.00 08/12/22 05:00 87 21 122/77 (92) 98 Nasal Cannula 2.00 08/12/22 04:45 96 20 128/93 (105) 97 Nasal Cannula 2.00 08/12/22 04:35 Nasal Cannula 2.00 08/12/22 04:30 36.4 98 30 124/82 (96) 100 Non Rebreather 15.00 08/12/22 04:06 128 08/12/22 03:12 36.1 64 16 133/65 99 Room Air 08/11/22 22:10 35.3 57 16 108/54 (72) 99 Room Air I & O 08/12/22 07:00 Intake Total 1700 ml Output Total 60 ml Balance 1640 ml Height & Weight Height: '" Weight: lbs. oz. kg; 65.00 BMI Method: General Appearance: No Apparent Distress, Moderate Distress (uncomfortable, holding basin), Obese HEENT: PERRL/EOMI, Pharynx Normal Neck: Normal Inspection, Supple Respiratory: Lungs Clear, Normal Breath Sounds, No Respiratory Distress Cardiovascular: Regular Rate, Rhythm, No Murmur Gastrointestinal: soft; No distended; other Extremity: Normal Inspection, Pedal Edema Neurologic/Psychiatric: Alert, No Motor/Sensory Deficits, Other (flat affect) Skin: Normal Color, Warm/Dry Results Lab Laboratory Tests 08/11/22 22:20 08/12/22 04:10 Assessment/Plan Assessment/Plan 1 AGNES ZARATE MD Aug 12, 2022 09:40
[2022-08-12] MEDS: LOSARTAN 25 MG (COZAAR) TAB PO SCH (09:59)
[2022-08-12] MEDS: NS W/KCL 40 MEQ/L 1,000 ML IV SCH ×3 (12:49→23:01)
[2022-08-12] MEDS ORDERED: MULT-577 PO ×2 (14:30)
[2022-08-12] MEDS ORDERED: PRAV40TA2 PO ×2 (14:30)
[2022-08-12] MEDS ORDERED: POTA99TA18 PO ×2 (14:30)
[2022-08-12] MEDS ORDERED: LEVO100T7 PO ×2 (14:30)
[2022-08-12] MEDS ORDERED: HYDR25TA4 PO ×2 (14:30)
[2022-08-12] MEDS ORDERED: OMEP-401 PO ×2 (14:30)
[2022-08-12] MEDS ORDERED: PANTOPRAZOLE 20 MG TABLET (PROTONIX) PO PRN (15:30)
[2022-08-12 16:40] LABS: CALCIUM 8.3 MG/DL (8.5-10.1)
[2022-08-12 16:44] LABS: CREATININE SERUM 1.06 MG/DL (0.60-1.30)
[2022-08-12 16:46] LABS: MAGNESIUM 2.2 MG/DL (1.6-2.4)
[2022-08-12 16:56] LABS: POTASSIUM 2.4 MMOL/L (3.6-5.0)
[2022-08-13] MEDS: POTASSIUM CL 10MEQ/50ML IVPB 50 ML IV SCH ×4 (00:06→13:11)
[2022-08-13] MEDS ORDERED: morphine INJ 4 MG/ML 1 ML (VIAL/SYRINGE) IVP STA (01:47)
[2022-08-13 05:05] LABS: BASOPHILS # (AUTO) 0.1 10^3/uL (0.0-0.1); BASOPHILS % (AUTO) 1 % (0-10); EOSINOPHILS # (AUTO) 0.1 10^3/uL (0.0-0.3); EOSINOPHILS % (AUTO) 1 % (0-10); HEMATOCRIT 37 % (35-52); HEMOGLOBIN 12.5 g/dL (11.5-16.0); LYMPHOCYTES % (AUTO) 21 % (12-44); MEAN CORPUSCULAR HEMOGLOBIN 28 pg (25-34); MEAN CORPUSCULAR HGB CONC 34 g/dL (32-36); MEAN CORPUSCULAR VOLUME 84 fL (80-99); MONOCYTES # (AUTO) 1.4 10^3/uL (0.0-1.0); MONOCYTES % (AUTO) 14 % (0-12); NEUTROPHILS % (AUTO) 63 % (42-75); PLATELET COUNT 231 10^3/uL (130-400); WHITE BLOOD COUNT 9.5 10^3/uL (4.3-11.0)
[2022-08-13 05:24] LABS: ALBUMIN 2.3 GM/DL (3.2-4.5); BILIRUBIN,TOTAL 1.6 MG/DL (0.1-1.0); CALCIUM 7.5 MG/DL (8.5-10.1); CREATININE SERUM 1.03 MG/DL (0.60-1.30); MAGNESIUM 2.1 MG/DL (1.6-2.4); PHOSPHORUS 3.1 MG/DL (2.3-4.7); TOTAL PROTEIN 5.2 GM/DL (6.4-8.2)
[2022-08-13] MEDS: KCL 20 MEQ TAB (K-DUR) PO SCH ×5 (06:00→10:03)
[2022-08-13] MEDS: MAGNESIUM 1 GM/100 ML IVPB 100 ML IV SCH (06:00)
[2022-08-13] MEDS: LEVOTHYROXINE 100 MCG (LEVOTHROID) TAB PO SCH (06:28)
[2022-08-13] MEDS: ACETAMINOPHEN 500 MG TAB (TYLENOL) PO PRN (07:33)
--- NOTE | 2022-08-13 07:37 | Cardiology Progress Note ---
Subjective Date Seen by Provider: Aug 13, 2022 Time Seen by Provider: 06:52 Subjective/Events-last exam Pt reports 5/10 chest wall pain this morning, though she does not think it is from her heart. Likely leftover from CPR yesterday. She denies SOB and syncope. Slight pedal edema. She denies nausea and has not vomited since yesterday. No issues with diarrhea overnight. Dr. Shankar: We are following her due to cardiac arrest. She is still sore in her chest from the CPR. She has persistent nausea and vomiting but her diarrhea has improved. She does have some slight shortness of breath. She denies palpitations, s yncope, or ankle edema. Certain portions of this document may have been dictated utilizing voice re cognition technology. Inherent to this technology, typographical and grammatical errors may exist. As much as I am diligent to identify and correct these mistakes, some errors may remain in the document. Focused Exam Respiratory: Lungs Clear, Normal Breath Sounds, No Accessory Muscle Use, No Respiratory Distress Cardiovascular: Regular Rate, Rhythm, No Murmur Skin: normal color, warm/dry Objective-Cardiology Exam Last Set of Vital Signs Vital Signs 08/13/22 08/13/22 07:53 11:00 Temp 36.0 Pulse 69 Resp 11 B/P (MAP) 88/52 (64) Pulse Ox 98 O2 Delivery Nasal Cannula O2 Flow Rate 3.00 I&O Intake and Output 08/13/22 00:00 Intake Total 4100 ml Output Total 660 ml Balance 3440 ml Intake Oral 950 ml IV Total 3150 ml Output Urine Total 660 ml General: Alert, Oriented X3, Cooperative, No Acute Distress HEENT: Atraumatic, EOMI Neck: Supple Lungs: Clear to Auscultation, Normal Air Movement Heart: Regular Rate, No Murmurs Abdomen: Soft, Other (Slight RUQ tenderness) Extremities: Other (+1 pedal edema) Skin: No Significant Lesion Neuro: Normal Speech, Normal Tone Psych/Mental Status: Mental Status NL, Mood NL Other physical findings Dr. Shankar: General: Alert. No acute distress. She is morbidly obese. She is wearing oxygen by nasal cannula. Eye: No xanthelasma. HENT: Normocephalic. Neck: Jugular venous pressure does not appear elevated. Respiratory: Lungs are clear to auscultation. Respirations are non-labored. Breath sounds are equal. Symmetrical chest wall expansion. Cardiovascular: Normal rate. Regular rhythm. Distant S1/S2. No murmur. No gallop. No edema. Gastrointestinal: Soft. Normal bowel sounds. Skin: Warm. Dry. Neurologic: Alert and oriented to person, place, time. Cranial nerves 3-11 grossly intact. Psychiatric: Cooperative. Appropriate mood & affect. Results Lab Laboratory Tests 08/12/22 16:15 08/13/22 04:57 A/P-Cardiology Admission Diagnosis (1) Cardiac arrest Status: Acute Assessment & Plan: Exact etiology unclear. She seems to be making a good neurologic recovery. She has a normal ejection fraction as noted on her echo cardiogram yesterday. She had profound electrolyte abnormalities when she presented and I suspect that this may have caused ventricular fibrillation. At some point, we may want to consider an ischemic evaluation. We could certainly consider performing this as an outpatient after discharge. Given her morbid obesity, a nuclear stress test might be somewhat challenging to fit her inside the nuclear camera. (2) Ventricular fibrillation Status: Acute Assessment & Plan: As above, this occurred in the setting of profound hypomagnesemia and hypokalemia. I suspect the electrolyte abnormalities caused to the ventricular fibrillation. (3) Elevated troponin Status: Acute Assessment & Plan: I suspect the mild elevation of the troponin level was related to her cardiac arrest and resuscitative efforts. (4) Morbid obesity Status: Chronic Assessment & Plan: She needs to work on weight loss. She was counseled in this regard. Diagnosis/Problems Diagnosis/Problems (1) Cardiac arrest Status: Acute Assessment & Plan: This occurred in the hospital. She had CPR for 10-15 minutes. Exact etiology unclear. She seems to be making a good neurologic recovery. She has a normal ejection fraction as noted on her echocardiogram earlier today. She had profound electrolyte abnormalities when she presented and I suspect that this may have caused ventricular fibrillation. At some point, we may want to consider an ischemic evaluation. We could certainly consider performing this as an outpatient after discharge. Given her morbid obesity, a nuclear stress test might be somewhat challenging to fit her inside the nuclear camera. (2) Ventricular fibrillation Status: Acute Assessment & Plan: As above, this occurred in the setting of profound hypomagnesemia and hypokalemia. I suspect the electrolyte abnormalities caused to the ventricular fibrillation. She was having some ventricular ectopy but this resolved. There is no indication for antiarrhythmic drug or a LifeVest at this time. (3) Chest pain Status: Acute Assessment & Plan: This is musculoskeletal chest pain most likely due to the CPR she received when she had in-hospital cardiac arrest. (4) Syncope Status: Acute Assessment & Plan: Etiology unclear. This may have been related to the electrolyte abnormalities. She has also been having some severe lightheaded spells and had an episode of syncope about 2 weeks before this index event. We may want to consider an external residential monitor following discharge. Qualifiers: Qualified Codes: R55 - Syncope and collapse (5) Elevated troponin Status: Acute Assessment & Plan: I suspect the mild elevation of the troponin level was related to her cardiac arrest and resuscitative efforts. This may be a type II non-ST elevation myocardial infarction due to the cardiac arrest. (6) Morbid obesity Status: Chronic Assessment & Plan: She needs to work on weight loss. She was counseled in this regard. Supervisory-Addendum Brief Verification & Attestation Participated in pt care: history, MDM, physical Personally performed: exam, history, MDM, supervision of care Care discussed with: Medical Student Procedures: n/a Results interpretation: Verified all documentation I independently interviewed and examined the patient and performed my own impression and plan. I also reviewed the medical student notes. JOVANA KEMP Aug 13, 2022 07:37 JASON SHANKAR JR, MD Aug 13, 2022 10:15
[2022-08-13] MEDS: ENOXAPARIN 60 MG/0.6 ML (LOVENOX) SYR SC SCH ×2 (08:29→21:11)
[2022-08-13] MEDS: LOSARTAN 25 MG (COZAAR) TAB PO SCH (08:29)
[2022-08-13] MEDS: AtorvaSTATin TABLET 10 MG TABLET PO SCH (08:29)
[2022-08-13] MEDS: ONDANSETRON 4 MG/2 ML (SDV) Z0FRAN IV PRN (08:35)
[2022-08-13] MEDS: NS W/KCL 40 MEQ/L 1,000 ML IV SCH ×2 (08:36→22:08)
--- NOTE | 2022-08-13 08:47 | Progress Note - Hospitalist ---
Subjective HPI/CC On Admission Date Seen by Provider: Aug 13, 2022 Mariana Hilliard is a 47 year old female with PMH T2DM, super obesity, who presented with syncope. She was feeling lightheaded and dizzy prior to the episode. She denies chest pain and palpitations. She has had chronic nausea and vomiting. She was admitted to the medical floor with nausea, vomiting, and presumed syncope due to orthostasis. She was found to have electrolyte abnormalities and this was supplemented in the ER. After arriving to the floor, she suffered a VFib arrest. ROSC was obtained. She reports feeling lightheaded, dizzy, and "hot" prior to the episode. She is still having nausea upon my exam. She reports still feeling hot. Her nurse says the heat was turned up in her ICU room prior to her arrival and the thermostat has been adjusted. She is having some chest pain now. She is not short of breath. She denies abdominal pain. She has a nephew who had a sudden cardiac . Subjective/Events-last exam Pt reports feeling better today but still having chest pain from compressions. No other complaints. Has not been out of bed yet but would like to try to get up today. Objective Exam Vital Signs Vital Signs Date Time Temp Pulse Resp B/P (MAP) Pulse Ox O2 Delivery O2 Flow Rate FiO2 08/14/22 09:00 85 111/64 (80) 97 Room Air 08/14/22 08:00 1.00 08/14/22 07:58 36.2 08/14/22 07:00 23 Capillary Refill : General Appearance: No Apparent Distress, Obese Respiratory: Lungs Clear, No Respiratory Distress Cardiovascular: Regular Rate, Rhythm, No Murmur Gastrointestinal: Normal Bowel Sounds, Non Tender, Soft Neurologic/Psychiatric: Alert, Oriented x3 Results/Procedures Lab Laboratory Tests 08/13/22 11:52 08/14/22 05:10 Patient resulted labs reviewed. Imaging: Reviewed Imaging Films, Reviewed Imaging Report Assessment/Plan Assessment and Plan Assess & Plan/Chief Complaint Cardiac arrest Ventricular fibrillation Cardiogenic syncope Nausea and vomiting Hypokalemia Hypomagnesemia Elevated troponin VFib arrest 08/12 with ROSC Repeat labs, continue electrolyte replacement Cardiology consulted, appreciate recs Qtc on EKG from 0405 yesterday AM was prolonged at 532 (listed as done at 1610 yesterday in chart) but resolved on repeat EKG yesterday at 0914 ( listed at 0915 yesterday in chart) UTI UA indicative of UTI Rocephin Cultures sent Leukocytosis Likely reactive as resolved T2DM Super obesity Clinically significant, no avute needs [facility] CHRISTY SHEEHAN MD Aug 13, 2022 08:46
--- NOTE | 2022-08-13 08:58 | Tele-ICU Progress Note ---
Subjective Date Seen by a Provider: Aug 13, 2022 Time Seen by a Provider: 08:58 Subjective/Events-last exam (Tele-ICU Physician , Progress note) Available chart/ vitals / labs / Images reviewed H&P is from ER notes Patient's information available about PMH, allergy reviewed in EMR. ROS as per chart and RN report Video assessment done using teleICU camera, rest of exam as per RN Discussed with RN. This patient who is morbidly obese with a BMI of 70.4 kg/m had monitored on medical floor with no nausea or vomiting which is chronic apparently. She had a ventricular fibrillation cardiac arrest on the medical floor and at that time she was resuscitated and obtained a ROSC. She is found to have a severe hypokalemia and hypomagnesemia which are replaced. Today had potassium is still low which is being replaced. She is awake alert and complains of nausea. Her blood pressure is somewhat low and urine output is low hence I have ordered fluid challenges. If additional potassium and magnesium have been ordered. No fever present urine cultures positive for gram-negative rods. She is on IV antibiotic. Sepsis Event Evaluation Height, Weight, BMI Height: '" Weight: lbs. oz. kg; 65.00 BMI Method: Exam Exam Patient acknowledged, consented, and participated in this virtual visit which was conducted using real time audio/video Vital Signs Date Time Temp Pulse Resp B/P (MAP) Pulse Ox O2 Delivery O2 Flow Rate FiO2 08/13/22 08:00 70 108/65 (79) 100 Nasal Cannula 3.00 08/13/22 07:53 36.0 08/13/22 07:48 98 Nasal Cannula 3.00 08/13/22 07:00 78 119/70 (86) 100 Nasal Cannula 3.00 08/13/22 07:00 68 08/13/22 06:00 75 109/71 (84) 98 Nasal Cannula 3.00 08/13/22 05:00 75 98/64 (72) 98 Nasal Cannula 3.00 08/13/22 04:00 99 Nasal Cannula 2.00 08/13/22 04:00 79 105/62 (74) 97 Nasal Cannula 3.00 08/13/22 03:00 85 96/62 (75) 96 Nasal Cannula 3.00 08/13/22 02:00 74 22 109/64 (79) 97 Nasal Cannula 3.00 08/13/22 01:41 75 08/13/22 01:08 88 08/13/22 01:00 93 14 102/59 (73) 97 Nasal Cannula 3.00 08/13/22 00:00 87 18 91/46 (60) 98 Nasal Cannula 3.00 08/12/22 23:59 98 Nasal Cannula 2.00 08/12/22 23:00 82 12 98/63 (78) 100 Nasal Cannula 3.00 08/12/22 22:00 77 104/56 (77) 100 Nasal Cannula 3.00 08/12/22 21:00 77 37 109/60 (77) 100 Nasal Cannula 3.00 08/12/22 20:00 99 Nasal Cannula 2.00 08/12/22 20:00 86 20 113/68 (80) 92 Nasal Cannula 3.00 08/12/22 19:00 70 19 111/66 (83) 100 Nasal Cannula 3.00 08/12/22 19:00 70 08/12/22 18:00 69 14 114/63 (80) 100 Nasal Cannula 3.00 08/12/22 17:00 69 21 109/68 (82) 100 Nasal Cannula 3.00 08/12/22 16:00 100 Nasal Cannula 2.00 08/12/22 16:00 69 12 114/64 (81) 100 Nasal Cannula 3.00 08/12/22 15:00 71 16 110/69 (83) 100 Nasal Cannula 3.00 08/12/22 14:00 96 128/73 (91) 100 Nasal Cannula 3.00 08/12/22 13:00 72 117/71 (86) 97 Nasal Cannula 3.00 08/12/22 12:10 72 08/12/22 12:00 76 137/96 (110) 100 Nasal Cannula 3.00 08/12/22 12:00 100 Nasal Cannula 2.00 08/12/22 11:00 69 104/69 (81) 98 Nasal Cannula 2.00 08/12/22 10:00 71 21 117/80 (92) 100 Nasal Cannula 2.00 08/12/22 09:00 73 16 130/84 (99) 99 Nasal Cannula 2.00 I & O 08/13/22 06:59 Intake Total 2860 ml Output Total 875 ml Balance 1985 ml Height & Weight Height: '" Weight: lbs. oz. kg; 65.00 BMI Method: General Appearance: No Apparent Distress, Moderate Distress (uncomfortable, holding basin), Obese HEENT: PERRL/EOMI, Pharynx Normal Neck: Normal Inspection, Supple Respiratory: Lungs Clear, Normal Breath Sounds, No Accessory Muscle Use, No Re spiratory Distress Cardiovascular: Regular Rate, Rhythm, No Murmur Gastrointestinal: soft; No distended; other Extremity: Normal Inspection, Pedal Edema Neurologic/Psychiatric: Alert, No Motor/Sensory Deficits, Other (flat affect) Skin: Normal Color, Warm/Dry Results Lab Laboratory Tests 08/11/22 22:20 08/12/22 04:10 08/12/22 10:48 08/12/22 16:15 08/13/22 04:57 Assessment/Plan Assessment/Plan 1. Cardiac arrest with ventricular fibrillation in the face of normal left ventricular ejection fraction probably due to severe electrolyte abnormalities. Cardiology on the case. 2. Hypokalemia and hypomagnesemia probably due to nausea and vomiting IV potassium and magnesium are being given 3. Chest wall pain secondary to CPR She is getting fentanyl IV as needed 4. Super morbid obesity. She may have an underlying sleep apnea as well which can contribute to ventricular arrhythmias. 5. Low urine output due to volume deficiency IV fluids are being given 6. UTI due to gram-negative rods. She is on IV Rocephin. DVT prophylaxis and ulcer prophylaxis. Care coordintion with bedside physicians, and consultants Critical Care: Critically Ill Patient Time spent with patient (mins): 20 HA SOFIA MD Aug 13, 2022 08:58
[2022-08-13] MEDS ORDERED: NON-FORMULARY MEDICATION 1 EA EA (Pravastatin Sodium 40 MG) PO SCH (09:00)
[2022-08-13 09:15] LABS: CLARITY,URINE CLOUDY; COLOR,URINE YELLOW; GLUCOSE, URINE (UA) NEGATIVE (NEGATIVE); KETONES,URINE NEGATIVE (NEGATIVE); LEUKOCYTE ESTERASE ,URINE 2+ (NEGATIVE); NITRITE,URINE POSITIVE (NEGATIVE); PH,URINE 5.5 (5-9); PROTEIN,URINE TRACE (NEGATIVE)
[2022-08-13 09:24] LABS: AMORPHOUS SEDIMENT,UR MOD AMOR URATES /LPF; BACTERIA,URINE MODERATE /HPF; WBC,URINE 50-100 /HPF
[2022-08-13 09:25] LABS: BILIRUBIN,URINE 1+ (NEGATIVE)
[2022-08-13] MEDS: cefTRIAXone 1 GM PRE-MIX 50 ML IV SCH (09:52)
--- NOTE | 2022-08-13 10:57 | Physical Therapy Progress Note ---
Therapy Progress Note Patient adamantly declined PT due to feeling ill. Will attempt later today or tomorrow a.m. 1 ref ESTELA RENDON PT Aug 13, 2022 10:57
[2022-08-13] MEDS ORDERED: NS IV 500 ML 500 ML IV ONE (11:45)
[2022-08-13 11:59] LABS: BASOPHILS # (AUTO) 0.1 10^3/uL (0.0-0.1); BASOPHILS % (AUTO) 1 % (0-10); EOSINOPHILS % (AUTO) 0 % (0-10); HEMATOCRIT 44 % (35-52); HEMOGLOBIN 13.8 g/dL (11.5-16.0); LYMPHOCYTES # (AUTO) 1.6 10^3/uL (1.0-4.0); LYMPHOCYTES % (AUTO) 16 % (12-44); MEAN CORPUSCULAR HEMOGLOBIN 28 pg (25-34); MEAN CORPUSCULAR HGB CONC 32 g/dL (32-36); MEAN CORPUSCULAR VOLUME 88 fL (80-99); MEAN PLATELET VOLUME 11.2 fL (9.0-12.2); MONOCYTES # (AUTO) 1.2 10^3/uL (0.0-1.0); MONOCYTES % (AUTO) 12 % (0-12); NEUTROPHILS # (AUTO) 6.9 10^3/uL (1.8-7.8); NEUTROPHILS % (AUTO) 70 % (42-75); PLATELET COUNT 189 10^3/uL (130-400)
[2022-08-13 12:40] LABS: POTASSIUM 3.3 MMOL/L (3.6-5.0)
[2022-08-13 12:41] LABS: CALCIUM 7.7 MG/DL (8.5-10.1)
[2022-08-13 12:45] LABS: CREATININE SERUM 1.02 MG/DL (0.60-1.30)
[2022-08-13] MEDS ORDERED: NS IV 1000 ML 1,000 ML IV ONE ×2 (14:15)
--- NOTE | 2022-08-13 14:18 | Physical Therapy Progress Note ---
Therapy Progress Note Patient adamantly declined PT intervention this p.m. due to family present. PT to attempt in a.m. 1 ref ESTELA RENDON PT Aug 13, 2022 14:18
[2022-08-14 05:25] LABS: BASOPHILS # (AUTO) 0.1 10^3/uL (0.0-0.1); BASOPHILS % (AUTO) 1 % (0-10); EOSINOPHILS # (AUTO) 0.2 10^3/uL (0.0-0.3); EOSINOPHILS % (AUTO) 3 % (0-10); HEMATOCRIT 38 % (35-52); LYMPHOCYTES # (AUTO) 1.9 10^3/uL (1.0-4.0); LYMPHOCYTES % (AUTO) 25 % (12-44); MEAN CORPUSCULAR HEMOGLOBIN 28 pg (25-34); MEAN CORPUSCULAR HGB CONC 32 g/dL (32-36); MEAN CORPUSCULAR VOLUME 87 fL (80-99); MEAN PLATELET VOLUME 11.2 fL (9.0-12.2); MONOCYTES % (AUTO) 13 % (0-12); NEUTROPHILS # (AUTO) 4.3 10^3/uL (1.8-7.8); NEUTROPHILS % (AUTO) 58 % (42-75); PLATELET COUNT 223 10^3/uL (130-400); WHITE BLOOD COUNT 7.5 10^3/uL (4.3-11.0)
[2022-08-14 05:45] LABS: ALBUMIN 2.4 GM/DL (3.2-4.5); CALCIUM 7.3 MG/DL (8.5-10.1); CREATININE SERUM 0.85 MG/DL (0.60-1.30); MAGNESIUM 2.1 MG/DL (1.6-2.4); PHOSPHORUS 2.7 MG/DL (2.3-4.7); POTASSIUM 3.4 MMOL/L (3.6-5.0); TOTAL PROTEIN 5.4 GM/DL (6.4-8.2)
[2022-08-14] MEDS: LEVOTHYROXINE 100 MCG (LEVOTHROID) TAB PO SCH (05:54)
[2022-08-14] MEDS: POTASSIUM CL 10MEQ/50ML IVPB 50 ML IV SCH ×3 (07:21→08:56)
[2022-08-14] MEDS: KCL 20 MEQ TAB (K-DUR) PO SCH (07:22)
[2022-08-14] MEDS: MAGNESIUM 1 GM/100 ML IVPB 100 ML IV SCH (07:22)
--- NOTE | 2022-08-14 07:46 | Cardiology Progress Note ---
Subjective Date Seen by Provider: Aug 14, 2022 Time Seen by Provider: 07:00 Subjective/Events-last exam Pt had poor urine output overnight and was given IVFs. Her chest wall pain following CPR has improved since yesterday. She does report some pedal edema, but denies SOB, palpitations, and syncope at this time. Dr. Shankar: I am following her due to cardiac arrest and syncope. Her chest is still sore from the CPR. She is able to breathe easier without having a significant amount of pleuritic chest pain. She denies palpitations, syncope, or ankle edema. Her nausea and vomiting have resolved and she has been able to drink an Ensure this morning. She also took oral losartan. Certain portions of this document may have been dictated utilizing voice recognition technology. Inherent to this technology, typographical and grammatical errors may exist. As much as I am diligent to identify and correct these mistakes, some errors may remain in the document. Focused Exam Respiratory: Lungs Clear, Normal Breath Sounds, No Accessory Muscle Use, No Respiratory Distress Cardiovascular: Regular Rate, Rhythm, No Murmur Skin: normal color, warm/dry Objective-Cardiology Exam Last Set of Vital Signs Vital Signs 08/14/22 08/14/22 08/14/22 08/14/22 07:00 07:58 09:00 12:00 Temp 36.2 Pulse 85 Resp 23 B/P (MAP) 111/64 (80) Pulse Ox 98 O2 Delivery Nasal Cannula O2 Flow Rate 2.00 I&O Intake and Output 08/14/22 00:00 Intake Total 3330 ml Output Total 825 ml Balance 2505 ml Intake Oral 480 ml IV Total 2850 ml Output Urine Total 825 ml General: Alert, Oriented X3, Cooperative, No Acute Distress HEENT: Atraumatic, EOMI Neck: Supple Lungs: Clear to Auscultation, Normal Air Movement Heart: Regular Rate, No Murmurs Abdomen: Soft, No Tenderness Extremities: Other (+1 pedal edema bilat) Skin: No Significant Lesion Neuro: Normal Speech, Normal Tone Psych/Mental Status: Mental Status NL, Mood NL Other physical findings Dr. Shankar: General: Alert. No acute distress. She is morbidly obese. Eye: No xanthelasma. HENT: Normocephalic. Neck: Jugular venous pressure does not appear elevated. Respiratory: Lungs are clear to auscultation. Respirations are non-labored. Breath sounds are equal. Symmetrical chest wall expansion. Cardiovascular: Normal rate. Regular rhythm. No murmur. No gallop. No edema. Gastrointestinal: Soft. Normal bowel sounds. Skin: Warm. Dry. Neurologic: Alert and oriented to person, place, time. Cranial nerves 3-11 grossly intact. Psychiatric: Cooperative. Appropriate mood & affect. Results Lab Laboratory Tests 08/14/22 05:10 A/P-Cardiology Admission Diagnosis (1) Cardiac arrest Status: Acute Assessment & Plan: Exact etiology unclear. She seems to be making a good neurologic recovery. She has a normal ejection fraction as noted on her echocardiogram. She had profound electrolyte abnormalities when she presented and I suspect that this may have caused ventricular fibrillation. At some point, we may want to consider an ischemic evaluation. We could certainly consider performing this as an outpatient after discharge. Given her morbid obesity, a nuclear stress test might be somewhat challenging to fit her inside the nuclear camera. If she can fit inside the nuclear camera, we will probably want to do a 2-day protocol to help improve image quality. (2) Ventricular fibrillation Status: Acute Assessment & Plan: As above, this occurred in the setting of profound hypomagnesemia and hypokalemia. I suspect the electrolyte abnormalities caused the ventricular fibrillation. She has a normal ejection fraction. I do not see any indication for a LifeVest or defibrillator at this time. I will plan on an outpatient event recorder which we can try to arrange at the time of discharge. However, we only put these on during weekdays so if she goes home on the weekend, we will have to arrange for this sometime next week. (3) Chest pain Status: Acute Assessment & Plan: Most likely due to musculoskeletal chest pain from CPR. (4) Primary hypertension Assessment & Plan: She was taking hydrochlorothiazide at home which most likely exacerbated the electrolyte abnormalities. I recommend stopping this medication. I have started her on a low-dose of losartan. (5) Elevated troponin Status: Acute Assessment & Plan: I suspect the mild elevation of the troponin level was related to her cardiac arrest and resuscitative efforts. This is consistent with a type II non-ST elevation myocardial infarction due to supply/demand mismatch. (6) Morbid obesity Status: Chronic Assessment & Plan: She needs to work on weight loss. She was counseled in this regard. Diagnosis/Problems Diagnosis/Problems (1) Cardiac arrest Status: Acute Assessment & Plan: Exact etiology unclear. She seems to be making a good neurologic recovery. She has a normal ejection fraction as noted on her echocardiogram yesterday. She had profound electrolyte abnormalities when she presented and I suspect that this may have caused ventricular fibrillation. At some point, we may want to consider an ischemic evaluation. We could certainly consider performing this as an outpatient after discharge. Given her morbid obesity, a nuclear stress test might be somewhat challenging to fit her inside the nuclear camera. (2) Ventricular fibrillation Status: Acute Assessment & Plan: As above, this occurred in the setting of profound hypomagnesemia and hypokalemia. I suspect the electrolyte abnormalities caused to the ventricular fibrillation. (3) Elevated troponin Status: Acute Assessment & Plan: I suspect the mild elevation of the troponin level was related to her cardiac arrest and resuscitative efforts. (4) Morbid obesity Status: Chronic Assessment & Plan: She needs to work on weight loss. She was counseled in this regard. Supervisory-Addendum Brief Verification & Attestation Participated in pt care: history, MDM, physical Personally performed: exam, history, MDM Care discussed with: Medical Student Procedures: n/a Results interpretation: Verified all documentation I independently performed my own history and physical and physical examination. I formulated my own impression and plan. I also reviewed the documentation of the medical student. JOVANA KEMP Aug 14, 2022 07:46 JASON SHANKAR JR, MD Aug 14, 2022 10:06
--- NOTE | 2022-08-14 08:18 | Tele-ICU Progress Note ---
Subjective Date Seen by a Provider: Aug 14, 2022 Time Seen by a Provider: 08:17 Subjective/Events-last exam Tele-ICU Physician , Progress Note ) Service provided via interactive audio and video telecommunications, Fredo goodson doing a patient admitted to ICU bed in [facility]. Available chart/ vitals / labs / Images reviewed Video assessment done using teleICU camera, rest of exam as per RN Discussed with RN Events overnight : Afebrile hemodynamically stable Respiratory - no distress I/O =3330/825 Drips: Pressors- no Patient today is awake alert and occasional nausea present chest wall pain is improving. Urine output slightly improved when compared to yesterday and her blood pressure is also improved. No shortness of breath present. Potassium is slightly low and she is receiving potassium chloride rider. Sepsis Event Evaluation Height, Weight, BMI Height: '" Weight: lbs. oz. kg; 65.00 BMI Method: Exam Exam Patient acknowledged, consented, and participated in this virtual visit which was conducted using real time audio/video Vital Signs Date Time Temp Pulse Resp B/P (MAP) Pulse Ox O2 Delivery O2 Flow Rate FiO2 08/14/22 07:58 36.2 08/14/22 07:34 100 Nasal Cannula 1.00 08/14/22 07:14 73 08/14/22 07:00 72 23 109/60 (76) 100 Nasal Cannula 1.00 08/14/22 06:00 71 35 102/62 (88) 100 Nasal Cannula 1.00 08/14/22 05:00 82 31 94/69 (83) 100 Nasal Cannula 1.00 08/14/22 04:00 36.2 08/14/22 04:00 75 13 117/64 (89) 96 Nasal Cannula 1.00 08/14/22 04:00 98 Nasal Cannula 1.00 08/14/22 03:00 76 17 114/67 (83) 100 Nasal Cannula 1.00 08/14/22 02:00 84 14 101/67 (77) 96 Nasal Cannula 1.00 08/14/22 01:06 84 15 104/65 (75) 96 Nasal Cannula 1.00 08/14/22 01:00 75 08/14/22 00:45 36.8 08/14/22 00:00 96 Nasal Cannula 1.00 08/14/22 00:00 86 11 101/51 (69) 97 Nasal Cannula 1.00 08/13/22 23:00 74 19 101/57 (70) 95 Nasal Cannula 1.00 08/13/22 22:19 84 19 96 Nasal Cannula 1.00 08/13/22 22:00 74 23 104/64 (71) 100 Nasal Cannula 3.00 08/13/22 21:00 74 13 94/61 (74) 100 Nasal Cannula 3.00 08/13/22 20:00 100 Nasal Cannula 3.00 08/13/22 20:00 36.3 76 18 100/53 (69) 100 Nasal Cannula 3.00 08/13/22 20:00 72 17 96/55 (68) 97 Nasal Cannula 3.00 08/13/22 19:01 Nasal Cannula 3.00 08/13/22 19:00 70 08/13/22 19:00 70 13 100/53 (62) 100 Nasal Cannula 3.00 08/13/22 18:00 75 14 85/55 (65) 99 Nasal Cannula 3.00 08/13/22 17:00 71 14 98/57 (71) 100 Nasal Cannula 3.00 08/13/22 16:25 96 Nasal Cannula 3.00 08/13/22 16:21 36.3 08/13/22 16:00 69 29 101/57 (72) 99 Nasal Cannula 3.00 08/13/22 15:00 69 22 109/69 (82) 98 Nasal Cannula 3.00 08/13/22 14:00 69 14 107/69 (82) 100 Nasal Cannula 3.00 08/13/22 13:00 77 08/13/22 13:00 69 12 96/53 (67) 99 Nasal Cannula 3.00 08/13/22 12:30 98 Nasal Cannula 3.00 08/13/22 12:00 36.0 08/13/22 11:00 69 11 88/52 (64) 98 Nasal Cannula 3.00 08/13/22 10:00 71 19 97/53 (68) 100 Nasal Cannula 3.00 08/13/22 09:00 72 22 102/72 (82) 94 Nasal Cannula 3.00 I & O 08/14/22 07:00 Intake Total 3320 ml Output Total 865 ml Balance 2455 ml Height & Weight Height: '" Weight: lbs. oz. kg; 65.00 BMI Method: General Appearance: No Apparent Distress, Moderate Distress (uncomfortable, holding basin), Obese HEENT: PERRL/EOMI, Pharynx Normal Neck: Normal Inspection, Supple Respiratory: Lungs Clear, Normal Breath Sounds, No Accessory Muscle Use, No Respiratory Distress Cardiovascular: Regular Rate, Rhythm, No Murmur Gastrointestinal: soft; No distended; other Extremity: Normal Inspection, Pedal Edema Neurologic/Psychiatric: Alert, No Motor/Sensory Deficits, Other (flat affect) Skin: Normal Color, Warm/Dry Results Lab Laboratory Tests 08/12/22 10:48 08/12/22 16:15 08/13/22 04:57 08/13/22 11:52 08/14/22 05:10 Assessment/Plan Assessment/Plan 1. Cardiac arrest with ventricular fibrillation in the face of normal left ventricular ejection fraction probably due to severe electrolyte abnormalities. Cardiology on the case. 2. Hypokalemia and hypomagnesemia probably due to nausea and vomiting IV potassium and magnesium are being given 3. Chest wall pain secondary to CPR She is getting fentanyl IV as needed 4. Super morbid obesity. She may have an underlying sleep apnea as well which can contribute to ventricular arrhythmias. 5. Low urine output due to volume deficiency IV fluids are being given 6. UTI due to gram-negative rods. She is on IV Rocephin. DVT prophylaxis and ulcer prophylaxis. Care coordintion with bedside physicians, and consultants Critical Care: Critically Ill Patient Time spent with patient (mins): 15 HA SOFIA MD Aug 14, 2022 08:18
[2022-08-14] MEDS: ACETAMINOPHEN 500 MG TAB (TYLENOL) PO PRN (08:57)
[2022-08-14] MEDS: ENOXAPARIN 60 MG/0.6 ML (LOVENOX) SYR SC SCH ×2 (08:59→20:57)
[2022-08-14] MEDS: LOSARTAN 25 MG (COZAAR) TAB PO SCH (09:03)
[2022-08-14] MEDS: NS W/KCL 40 MEQ/L 1,000 ML IV SCH ×2 (09:04→20:56)
--- NOTE | 2022-08-14 09:08 | Progress Note - Hospitalist ---
Subjective HPI/CC On Admission Date Seen by Provider: Aug 14, 2022 Mariana Hilliard is a 47 year old female with PMH T2DM, super obesity, who presented with syncope. She was feeling lightheaded and dizzy prior to the episode. She denies chest pain and palpitations. She has had chronic nausea and vomiting. She was admitted to the medical floor with nausea, vomiting, and presumed syncope due to orthostasis. She was found to have electrolyte abnormalities and this was supplemented in the ER. After arriving to the floor, she suffered a VFib arrest. ROSC was obtained. She reports feeling lightheaded, dizzy, and "hot" prior to the episode. She is still having nausea upon my exam. She reports still feeling hot. Her nurse says the heat was turned up in her ICU room prior to her arrival and the thermostat has been adjusted. She is having some chest pain now. She is not short of breath. She denies abdominal pain. She has a nephew who had a sudden cardiac . Subjective/Events-last exam Pt reports doing well today. Feeling better. Hopeful to get out of bed today. List of questions at bedside left by . I answered all questions except regarding the defibrillator and told patient to discuss with Dr Shankar. Objective Exam Vital Signs Vital Signs Date Time Temp Pulse Resp B/P (MAP) Pulse Ox O2 Delivery O2 Flow Rate FiO2 08/14/22 09:00 85 111/64 (80) 97 Room Air 08/14/22 08:00 1.00 08/14/22 07:58 36.2 08/14/22 07:00 23 Capillary Refill : General Appearance: No Apparent Distress, WD/WN Respiratory: Lungs Clear, No Respiratory Distress Cardiovascular: Regular Rate, Rhythm, No Murmur Gastrointestinal: Normal Bowel Sounds, Non Tender, Soft Neurologic/Psychiatric: Alert, Oriented x3 Results/Procedures Lab Laboratory Tests 08/13/22 11:52 08/14/22 05:10 Patient resulted labs reviewed. Imaging: Reviewed Imaging Films, Reviewed Imaging Report Assessment/Plan Assessment and Plan Assess & Plan/Chief Complaint Cardiac arrest Ventricular fibrillation Cardiogenic syncope Nausea and vomiting Hypokalemia Hypomagnesemia Elevated troponin VFib arrest 08/12 with ROSC Repeat labs, continue electrolyte replacement Cardiology consulted, appreciate recs Defer questions regarding defibrillator to Dr Raad Crawford improving Reports very poor oral intake for the past few months and also taking HCTZ- likely cause of hypokalemia PT/OT UTI UA indicative of UTI Rocephin Cultures shows e coli T2DM Super obesity Clinically significant, no acute needs DVT prophylaxis: [facility] Critical Care Critically Ill Patient CHRISTY SHEEHAN MD Aug 14, 2022 09:08
[2022-08-14] MEDS: AtorvaSTATin TABLET 10 MG TABLET PO SCH (09:09)
[2022-08-14] MEDS: cefTRIAXone 1 GM PRE-MIX 50 ML IV SCH (09:10)
--- NOTE | 2022-08-14 09:10 | Diagnostic Imaging Report ---
INDICATION: Chest pain COMPARISON: 08/12/2022 TECHNIQUE: Single radiograph of the chest dated 08/14/2022. FINDINGS: The cardiac silhouette is enlarged. Central pulmonary vascular congestion is present, increased since the prior exam. The lungs are clear of focal pulmonary opacity. No pleural effusion. No pneumothorax. No acute osseous abnormality. IMPRESSION: Cardiomegaly with developing central pulmonary vascular congestion. No significant pleural effusion. Dictated by: Dictated on workstation # [id number]
--- NOTE | 2022-08-14 09:10 | Diagnostic Imaging Report ---
INDICATION: Pain. COMPARISON: None available. TECHNIQUE: 4 radiographs of the bilateral knees dated 08/14/2022. FINDINGS: No acute fracture or dislocation. No destructive osseous process. Mild medial joint space narrowing within the bilateral knees. Mild tricompartmental osteophytosis. No knee joint effusion. 1 cm calcification overlying the suprapatellar recess on the right on the lateral radiograph is noted. IMPRESSION: No acute fracture with mild degenerative changes. Osteophyte versus potential loose body overlying the right suprapatellar recess. Dictated by: Dictated on workstation # [id number]
--- NOTE | 2022-08-14 10:38 | Physical Therapy Evaluation ---
PT Evaluation-General Medical Diagnosis Admission Date Aug 12, 2022 at 05:00 Medical Diagnosis: syncope Onset Date: Aug 12, 2022 Therapy Diagnosis Therapy Diagnosis: impaired mobility Precautions Precautions/Isolations: Fall Prevention, Standard Precautions Referral Physician: Clarence Reason for Referral: Evaluation/Treatment Medical History Pertinent Medical History: DM, Hypothroidism Current History Patient went into Vfib arrest after being admitted, had chest compressions and pain from that. Reviewed History: Yes Social History Home: Multilevel Current Living Status: Spouse Entry Into Home: Ramp PT Steps Inside Home: 13 Prior Prior Level of Function SCALE: Activities may be completed with or without assistive devices. 8-Twuujzisam-ugjtnls completes the activity by him/herself with no assistance from a helper. 5-Set-up or Clean-up Assistance-helper sets up or cleans up; patient completes activity. [place] assists only prior to or following the activity. 4-Supervision or Touching Assistance-helper provides verbal cues and/or touching/steadying and/or contact guard assistance as patient completes activity. Assistance may be provided throughout the activity or intermittently. 3-Partial/Moderate Assistance-helper does LESS THAN HALF the effort. [place] lifts, holds or supports trunk or limbs, but provides less than half the effort. 2-Substantial/Maximal Assistance-helper does MORE THAN HALF the effort. [place] lifts or holds trunk or limbs and provides more than half the effort. 4-Bxtupjrbu-sotgak does ALL the effort. Patient does none of the effort to complete the activity. Or, the assistance of 2 or more helpers is required for the patient to complete the activity. If activity was not attempted, code reason: 7-Patient Refused. 9-Not Applicable-not attempted and the patient did not perform the activity before the current illness, exacerbation or injury. 10-Not Attempted due to Environmental Limitations-(lack of equipment, weather restraints, etc.). 88-Not Attempted due to Medical Conditions or Safety Concerns. Bed Mobility: 6 Transfers (B,C,W/C): 6 Gait: 6 Stairs: 6 Indoor Mobility (Ambulation): Independent Stairs: Independent PT Evaluation-Current Subjective Patient in bed pre tx, agrees to PT, has unrated chest pain due to compressions. Pt/Family Goals to be independent at home Objective Patient Orientation: Person, Place, Situation Attachments: Tee Catheter, IV ROM/Strength ROM Lower Extremities impaired due to obesity Sensory Vision: Functional Hearing: Functional Sensation Right Lower Extremit: Impaired Sensation Left Lower Extremity: Impaired Transfers Roll Left to Right (QC): 3 Lying to Sitting/Side of Bed(Q: 3 Sit to Stand (QC): 4 Chair/Gxb-yo-Hjfyr Xfer(QC): 4 Patient stands with CGA from elevated bed, takes a few steps to recliner with CGA and a rolling walker, cues for hand placement and safety Balance Sitting Static: Normal Sitting Dynamic: Normal Standing Static: Good Standing Dynamic: Good Treatment BLE seated exercises x20 (AP, LAQ) Assessment/Needs Patient in recliner post tx with nurse call, phone, tray, all needs met. Rehab Potential: Fair PT Classroom Instructional Aide Goals Shelter Goals PT Classroom Instructional Aide Goals Time Frame: Aug 21, 2022 Roll Left & Right (QC): 6 Sit to Lying (QC): 6 Lying-Sitting on Side/Bed(QC): 6 Sit to Stand (QC): 6 Chair/Xtl-sv-Jbprm Xfer(QC): 6 Walk 10 feet (QC): 6 Walk 50ft with 2 Turns (QC): 6 PT Plan Problem List Problem List: Activity Tolerance, Functional Strength, Safety, Balance, Gait, Transfer, Bed Mobility, ROM Treatment/Plan Treatment Plan: Continue Plan of Care Treatment Plan: Bed Mobility, Education, Functional Activity Adan, Functional Strength, Gait, Safety, Therapeutic Exercise, Transfers Treatment Duration: Aug 21, 2022 Frequency: 6 times per week Estimated Hrs Per Day: .25 hour per day Patient and/or Family Agrees t: Yes Safety Risks/Education Patient Education: Transfer Techniques, Correct Positioning, Safety Issues Teaching Recipient: Patient Teaching Methods: Demonstration, Discussion Response to Teaching: Reinforcement Needed Discharge Recommendations Plan Patient will perform bed mobility and transfer training, balance and endurance training, functional strengthening, stair training, gait training, and education, to improve functional mobility and independence at home. Therapy Discharge Recommendati: Home & Family, Post Acute PT Time Time In: 1010 Time Out: 1025 DATE: Aug 14, 2022 Total Billed Treatment Time: 15 Total Billed Treatment 1 visit CAMMIE MURRAY PT Aug 14, 2022 10:38
[2022-08-14 10:46] LABS: AMPHETAMINE SCREEN, URINE NEGATIVE (NEGATIVE); BENZODIAZEPINES SCREEN URINE NEGATIVE (NEGATIVE); CANNABINOID SCREEN, URINE NEGATIVE (NEGATIVE); COCAINE SCREEN URINE NEGATIVE (NEGATIVE); OPIATE SCREEN URINE POSITIVE (NEGATIVE)
[2022-08-14 10:47] LABS: BARBITURATE SCREEN URINE NEGATIVE (NEGATIVE); METHADONE STAT NEGATIVE (NEGATIVE); OXYCODONE STAT NEGATIVE (NEGATIVE); PROPOXYPHENE STAT NEGATIVE (NEGATIVE); TRICYCLIC ANTIDEPRESSANTS SCRE NEGATIVE (NEGATIVE)
[2022-08-14] MEDS: FLUTICASONE NASAL SPRAY (FLONASE) 16 GM BTL NS SCH (11:29)
[2022-08-15 04:41] LABS: BASOPHILS # (AUTO) 0.1 10^3/uL (0.0-0.1); BASOPHILS % (AUTO) 1 % (0-10); EOSINOPHILS # (AUTO) 0.2 10^3/uL (0.0-0.3); EOSINOPHILS % (AUTO) 3 % (0-10); HEMATOCRIT 36 % (35-52); HEMOGLOBIN 11.6 g/dL (11.5-16.0); LYMPHOCYTES % (AUTO) 29 % (12-44); MEAN CORPUSCULAR HEMOGLOBIN 28 pg (25-34); MEAN CORPUSCULAR HGB CONC 32 g/dL (32-36); MEAN CORPUSCULAR VOLUME 86 fL (80-99); MEAN PLATELET VOLUME 11.3 fL (9.0-12.2); MONOCYTES % (AUTO) 13 % (0-12); NEUTROPHILS # (AUTO) 3.8 10^3/uL (1.8-7.8); NEUTROPHILS % (AUTO) 54 % (42-75); PLATELET COUNT 240 10^3/uL (130-400); WHITE BLOOD COUNT 7.1 10^3/uL (4.3-11.0)
[2022-08-15 04:56] LABS: ALBUMIN 2.3 GM/DL (3.2-4.5); POTASSIUM 3.2 MMOL/L (3.6-5.0)
[2022-08-15 04:57] LABS: CALCIUM 7.6 MG/DL (8.5-10.1)
[2022-08-15 04:58] LABS: TOTAL PROTEIN 5.3 GM/DL (6.4-8.2)
[2022-08-15 05:02] LABS: CREATININE SERUM 0.77 MG/DL (0.60-1.30)
[2022-08-15 05:05] LABS: MAGNESIUM 1.8 MG/DL (1.6-2.4)
[2022-08-15] MEDS: POTASSIUM CL 10MEQ/50ML IVPB 50 ML IV SCH (05:36)
[2022-08-15] MEDS: MAGNESIUM 1 GM/100 ML IVPB 100 ML IV SCH (05:36)
[2022-08-15] MEDS: KCL 20 MEQ TAB (K-DUR) PO SCH (05:37)
[2022-08-15] MEDS ORDERED: KCL 20 MEQ TAB (K-DUR) PO ONE ×2 (05:45→08:00)
[2022-08-15] MEDS: LEVOTHYROXINE 100 MCG (LEVOTHROID) TAB PO SCH (05:56)
[2022-08-15] MEDS: NS W/KCL 40 MEQ/L 1,000 ML IV SCH (07:20)
--- NOTE | 2022-08-15 08:04 | Cardiology Progress Note ---
Subjective Date Seen by Provider: Aug 15, 2022 Time Seen by Provider: 07:10 Subjective/Events-last exam Pt states that her chest wall pain from CPR is almost gone. She denies SOB, palpitations, and syncope. She is experiencing some extra ankle edema. Yesterday she sat up in her chair for about one hour. This went ok from a chest pain standpoint, but did make her R knee hurt. A CXR yesterday showed cardiomegaly with central pulmonary vascualar congestion. A knee xray showed no acute fx, but some mild degenerative changes. Dr. Shankar: I am following her due to cardiac arrest. Her chest discomfort is gradually subsiding. She denies dyspnea at rest. She denies palpitations or syncope. She has chronic, mild ankle edema. Certain portions of this document may have been dictated utilizing voice recognition technology. Inherent to this technology, typographical and grammatical errors may exist. As much as I am diligent to identify and correct these mistakes, some errors may remain in the document. Focused Exam Respiratory: Lungs Clear, Normal Breath Sounds, No Accessory Muscle Use, No Respiratory Distress, Other (1L NC) Cardiovascular: Regular Rate, Rhythm, No Murmur Skin: normal color, warm/dry Objective-Cardiology Exam Last Set of Vital Signs Vital Signs 08/15/22 08/15/22 08/15/22 08/15/22 07:47 08:00 08:15 08:20 Temp 36.3 Pulse 59 Resp 22 B/P (MAP) 121/68 (85) Pulse Ox 98 O2 Delivery Nasal Cannula O2 Flow Rate 1.00 I&O Intake and Output 08/15/22 00:00 Intake Total 2437 ml Output Total 940 ml Balance 1497 ml Intake Oral 1287 ml IV Total 1150 ml Output Urine Total 940 ml General: Alert, Oriented X3, Cooperative, No Acute Distress HEENT: Atraumatic, EOMI Neck: Supple Lungs: Clear to Auscultation, Normal Air Movement Heart: Regular Rate, No Murmurs Abdomen: Soft, No Tenderness Extremities: Other (+1 pedal edema bilat) Skin: No Significant Lesion Neuro: Normal Speech, Other (Able to sit up in a chair yesterday) Psych/Mental Status: Mental Status NL, Mood NL Other physical findings Dr. Shankar: General: Alert. No acute distress. She is morbidly obese. Eye: No xanthelasma. HENT: Normocephalic. Neck: Jugular venous pressure does not appear elevated. Respiratory: Lungs are clear to auscultation. Respirations are non-labored. Breath sounds are equal. Symmetrical chest wall expansion. Cardiovascular: Normal rate. Regular rhythm. No murmur. No gallop. No edema. Gastrointestinal: Soft. Normal bowel sounds. Skin: Warm. Dry. Neurologic: Alert and oriented to person, place, time. Cranial nerves 3-11 grossly intact. Psychiatric: Cooperative. Appropriate mood & affect. Results Lab Laboratory Tests 08/15/22 04:00 A/P-Cardiology Admission Diagnosis (1) Cardiac arrest Status: Acute Assessment & Plan: I suspect this was due to her severe hypokalemia and hypoma gnesemia. There is no indication for a defibrillator or LifeVest at this time. I have stopped her hydrochlorothiazide to help reduce the risk of recurrent metabolic abnormalities. (2) Ventricular fibrillation Status: Acute Assessment & Plan: As above, most likely due to her metabolic derangements that were present at the time of admission. She was having some frequent ventricular ectopy following her CODE BLUE. This resolved after her electrolyte abnormalities were corrected. As above, there is no indication for LifeVest or defibrillator at this time. I will plan on an outpatient event recorder following discharge. I have ordered this through my office. If she is discharged on a weekday, then we can have her register as an outpatient before she leaves the facility and we can place the monitor before she goes home. If she leaves after hours, we will need to arrange for this following discharge. (3) Elevated troponin Status: Acute Assessment & Plan: Most likely due to the CODE BLUE. This may have been a type II non-ST elevation myocardial infarction. At some point, I will plan on an outpatient nuclear stress test assuming she is not too large for the camera. (4) Primary hypertension Assessment & Plan: As above, I stopped her hydrochlorothiazide because this may have been causing worsening hypokalemia. I have started her on a low-dose of losartan. (5) Morbid obesity Status: Chronic Assessment & Plan: She needs to work on weight loss. She has been counseled in this regard. Assessment/Plan (1) Cardiac arrest Assessment & Plan: Ischemic evaluation needed outpatient after discharge. Will attempt a 2-day protocol nuclear stress test if able based on body habitus. (2) Ventricular fibrillation Assessment & Plan: outpatient event recorder needed at time of discharge; de fibrillator not needed currently (3) Chest pain Assessment & Plan: Most likely due to musculoskeletal chest pain from CPR. (4) Primary hypertension Assessment & Plan: Stopped hydrochlorothiazide, started low dose losartan (5) Elevated troponin Assessment & Plan: Likely due to type II non-ST elevation myocardial infarction due to supply/demand mismatch (6) Morbid obesity Assessment & Plan: She needs to work on weight loss. She was counseled in this regard. Diagnosis/Problems Diagnosis/Problems (1) Cardiac arrest Status: Acute (2) Ventricular fibrillation Status: Acute (3) Elevated troponin Status: Acute (4) Morbid obesity Status: Chronic Supervisory-Addendum Brief Verification & Attestation Participated in pt care: history, MDM, physical Personally performed: exam, history, MDM Care discussed with: Medical Student Procedures: n/a Results interpretation: Verified all documentation I independently performed my own history and physical and physical examination. I formulated my own impression and plan. I also reviewed the documentation of the medical student. JOVANA KEMP Aug 15, 2022 08:04 JASON SHANKAR JR, MD Aug 15, 2022 10:12
[2022-08-15] MEDS: AtorvaSTATin TABLET 10 MG TABLET PO SCH (08:06)
[2022-08-15] MEDS: LOSARTAN 25 MG (COZAAR) TAB PO SCH (08:07)
[2022-08-15] MEDS: ENOXAPARIN 60 MG/0.6 ML (LOVENOX) SYR SC SCH ×2 (08:07→19:59)
[2022-08-15] MEDS: FLUTICASONE NASAL SPRAY (FLONASE) 16 GM BTL NS SCH (08:07)
[2022-08-15] MEDS: cefTRIAXone 1 GM PRE-MIX 50 ML IV SCH (09:01)
--- NOTE | 2022-08-15 09:14 | Tele-ICU Progress Note ---
Subjective Date Seen by a Provider: Aug 15, 2022 Time Seen by a Provider: 09:13 Subjective/Events-last exam (Tele-ICU Physician , Progress Note ) Service provided via interactive audio and video telecommunications E-CARE system to a patient admitted to ICU bed in [facility]. Available chart/ vitals / labs / Images reviewed Video assessment done using teleICU camera, rest of exam as per RN Discussed with RN Events overnight : Afebrile hemodynamically stable Respiratory - 1L I/O = ++ Drips: Pressors- no Consultants: cards Hospital course: (08/12) 47y F passed out at [facility] after feeling dizzy. Pt. states LOC and tingling all over. (K+2.5 and Mg 1.4) Replacements ordered. MED SURG admit with syncope, hypokalemia and hypomagnesemia. 08/12- TRANSFERRED to ICU stat for same post VFib/V Tach arrest on floor. Defibbed x 2. For possile CCL this am. Replacing Mg and K+. Pt. alert/awake. A/P VFib arrest. 08/12 ROSC was obtained -EF ENL -probably due to severe electrolyte abnormalities. - cards consulted Syncope , presumed cardiogenic - w/up as above N/V , reported chronic -suspected DM gastroparesis - but hb1ac is only 5.4 - still nauseated - w/up as per bedside MD - stop IVF - follow . monitor volume status Electrolytes derangements ( devere hypoK and hypo Mg ) - IMPROVED , almost normalized - replacing low K Acidosis with anion gap - presumed post arrest - resolved UTI due to Ecoli - on IV Rocephin. DM II -ISS Chest wall pain secondary to CPR Obesity - suspected KATIE- might need PSG as outpatient Lines : periph , (Central Line Necessity Reviewed) Tee: OG: Nutrition: po Analgesia: Anxiety/ delirium VTE Prophylaxis: anjelica 60 bid Stress Ulcer Prophylaxis: Plans in collaboration with bedside consultants and IM MDs. Discussed with RN to reach out if any questions or concerns A total of 20 minutes of critical care time was devoted to this patient today, required to treat and/or prevent further deterioration of critical care condition ( as above ) . I am remotely monitoring this patient from another state. I am unable to do the bedside exam, and history/physical and pertinent information is taken from other notes in the computer and bedside staff. . Sepsis Event Evaluation Height, Weight, BMI Height: '" Weight: lbs. oz. kg; 65.00 BMI Method: Exam Exam Patient acknowledged, consented, and participated in this virtual visit which was conducted using real time audio/video Vital Signs Date Time Temp Pulse Resp B/P (MAP) Pulse Ox O2 Delivery O2 Flow Rate FiO2 08/15/22 08:20 Nasal Cannula 1.00 08/15/22 08:15 98 Room Air 08/15/22 08:00 59 22 121/68 (85) 99 Nasal Cannula 1.00 08/15/22 07:47 36.3 08/15/22 07:46 98 Nasal Cannula 1.00 08/15/22 07:00 80 15 115/76 (89) 97 Nasal Cannula 1.00 08/15/22 07:00 79 08/15/22 06:00 82 33 114/61 (78) 98 Nasal Cannula 1.00 08/15/22 05:00 90 16 113/69 (84) 96 Nasal Cannula 1.00 08/15/22 04:00 97 Nasal Cannula 1.00 08/15/22 04:00 36.4 08/15/22 03:00 81 28 125/70 (88) 96 Nasal Cannula 1.00 08/15/22 02:00 80 14 139/76 (97) 96 Nasal Cannula 1.00 08/15/22 01:00 86 16 148/78 (101) 96 Nasal Cannula 1.00 08/15/22 01:00 83 08/15/22 00:00 36.3 Nasal Cannula 1.00 08/15/22 00:00 98 Nasal Cannula 1.00 08/15/22 00:00 96 24 125/73 (90) 98 Nasal Cannula 1.00 08/14/22 23:01 81 13 107/62 (77) 98 Nasal Cannula 1.00 08/14/22 22:02 78 113/62 (79) 98 Nasal Cannula 1.00 08/14/22 21:01 80 11 121/71 (88) 100 Nasal Cannula 1.00 08/14/22 20:59 36.2 Nasal Cannula 1.00 08/14/22 20:00 75 50 118/62 (80) 100 Nasal Cannula 2.00 08/14/22 20:00 99 Nasal Cannula 2.00 08/14/22 19:00 75 08/14/22 19:00 72 9 115/67 (83) 100 Nasal Cannula 2.00 08/14/22 18:00 76 16 109/57 (74) 100 Nasal Cannula 2.00 08/14/22 17:00 75 14 116/66 (83) 100 Nasal Cannula 2.00 08/14/22 16:00 75 13 106/79 (88) 98 Nasal Cannula 2.00 08/14/22 16:00 100 Nasal Cannula 2.00 08/14/22 15:00 79 13 126/58 (80) 97 Nasal Cannula 2.00 08/14/22 14:00 71 15 136/86 (103) 98 Nasal Cannula 2.00 08/14/22 13:02 76 08/14/22 13:00 79 28 117/61 (79) 97 Nasal Cannula 2.00 08/14/22 12:00 98 Nasal Cannula 2.00 08/14/22 12:00 70 26 108/65 (79) 100 Nasal Cannula 2.00 08/14/22 11:25 Nasal Cannula 2.00 08/14/22 11:00 88 108/58 (75) 95 Room Air 08/14/22 10:00 85 113/62 (79) 95 Room Air I & O 08/15/22 07:00 Intake Total 2207 ml Output Total 850 ml Balance 1357 ml Height & Weight Height: '" Weight: lbs. oz. kg; 65.00 BMI Method: General Appearance: No Apparent Distress, Obese HEENT: PERRL/EOMI, Pharynx Normal Neck: Normal Inspection, Supple Respiratory: Lungs Clear, Normal Breath Sounds, No Accessory Muscle Use, No Respiratory Distress, Other (1L NC) Cardiovascular: Regular Rate, Rhythm, No Murmur Gastrointestinal: soft; No distended; other Extremity: Normal Inspection, Pedal Edema Neurologic/Psychiatric: Alert, Oriented x3 Skin: Normal Color, Warm/Dry Results Lab Laboratory Tests 08/13/22 11:52 08/14/22 05:10 08/15/22 04:00 Assessment/Plan Assessment/Plan 1 AGNES ZARATE MD Aug 15, 2022 09:14
--- NOTE | 2022-08-15 09:22 | Progress Note - Hospitalist ---
Subjective HPI/CC On Admission Date Seen by Provider: Aug 15, 2022 Mariana Hilliard is a 47 year old female with PMH T2DM, super obesity, who presented with syncope. She was feeling lightheaded and dizzy prior to the episode. She denies chest pain and palpitations. She has had chronic nausea and vomiting. She was admitted to the medical floor with nausea, vomiting, and presumed syncope due to orthostasis. She was found to have electrolyte abnormalities and this was supplemented in the ER. After arriving to the floor, she suffered a VFib arrest. ROSC was obtained. She reports feeling lightheaded, dizzy, and "hot" prior to the episode. She is still having nausea upon my exam. She reports still feeling hot. Her nurse says the heat was turned up in her ICU room prior to her arrival and the thermostat has been adjusted. She is having some chest pain now. She is not short of breath. She denies abdominal pain. She has a nephew who had a sudden cardiac . Subjective/Events-last exam Pt reports doing well. Only question is regarding swelling in her legs. Plan to transfer to fourth floor. Objective Exam Vital Signs Vital Signs Date Time Temp Pulse Resp B/P (MAP) Pulse Ox O2 Delivery O2 Flow Rate FiO2 08/15/22 08:20 Nasal Cannula 1.00 08/15/22 08:15 98 08/15/22 08:00 59 22 121/68 (85) 08/15/22 07:47 36.3 Capillary Refill : General Appearance: No Apparent Distress, WD/WN, Obese Respiratory: Lungs Clear, No Respiratory Distress Cardiovascular: Regular Rate, Rhythm, No Murmur Neurologic/Psychiatric: Alert, Oriented x3 Results/Procedures Lab Laboratory Tests 08/15/22 04:00 Patient resulted labs reviewed. Imaging: Reviewed Imaging Films, Reviewed Imaging Report Assessment/Plan Assessment and Plan Assess & Plan/Chief Complaint Cardiac arrest Ventricular fibrillation Cardiogenic syncope Nausea and vomiting Hypokalemia Hypomagnesemia Elevated troponin VFib arrest 08/12 with ROSC- neurologically intact Cardiology consulted, appreciate recs Defer questions regarding defibrillator to Dr Raad Crawford stable- daily supplement PT/OT UTI UA indicative of UTI Cultures shows e coli sensitive to rocephin- completed course Work to MARK humphrey T2DM Super obesity Clinically significant, no acute needs DVT prophylaxis: Lovenox Critical Care Critically Ill Patient CHRISTY SHEEHAN MD Aug 15, 2022 09:22
--- NOTE | 2022-08-15 09:58 | Physical Therapy Progress Note ---
Therapy Progress Note Patient adamantly declined PT this a.m. due to not sleeping and wanting to be left alone. PT attempted to educate patient on importance of participating with skilled PT to improve mobility and strength, however, patient continued to decline. RN and physician notified. 1 ref ESTELA RENDON PT Aug 15, 2022 09:58
--- NOTE | 2022-08-15 11:01 | Physical Therapy Daily Note ---
PT Daily Note-Current Subjective Patient agrees to PT. Pain Section J - Health Conditions 1. Rarely or not at all 2. Occasionally 3. Frequently 4. Almost constantly 8. Unable to answer Pain Effect on Sleep: 1 Pain Interference with Therapy: 1 Pain Interference w/Day-to-Day: 1 Mental Status Attachments: Tee Catheter Transfers SCALE: Activities may be completed with or without assistive devices. 8-Vwuiytrabk-zefcsrw completes the activity by him/herself with no assistance from a helper. 5-Set-up or Clean-up Assistance-helper sets up or cleans up; patient completes activity. [place] assists only prior to or following the activity. 4-Supervision or Touching Assistance-helper provides verbal cues and/or touching/steadying and/or contact guard assistance as patient completes activity. Assistance may be provided throughout the activity or intermittently. 3-Partial/Moderate Assistance-helper does LESS THAN HALF the effort. [place] lifts, holds or supports trunk or limbs, but provides less than half the effort. 2-Substantial/Maximal Assistance-helper does MORE THAN HALF the effort. [place] lifts or holds trunk or limbs and provides more than half the effort. 7-[place]-pkvxdt does ALL the effort. Patient does none of the effort to complete the activity. Or, the assistance of 2 or more helpers is required for the patient to complete the activity. If activity was not attempted, code reason: 7-Patient Refused. 9-Not Applicable-not attempted and the patient did not perform the activity before the current illness, exacerbation or injury. 10-Not Attempted due to Environmental Limitations-(lack of equipment, weather restraints, etc.). 88-Not Attempted due to Medical Conditions or Safety Concerns. Sit to Stand (QC): 4 (PT dependent assist to cleanse after BM ) Gait Training Distance: 150' Walk 10 feet (QC): 4 Walk 50 ft with 2 Turns(QC): 4 Walk 150 ft (QC): 4 Gait Assistive Device: FWW slow, steady, functional gait sequence Assessment Patient tolerated treatment well and remains up in recliner with needs met. Patient voices she want to go home JUAREZ. Patient to transfer to 4th medical floor on this date. PT Design Agent Goals Design Agent Goals PT Design Agent Goals Time Frame: Aug 21, 2022 Roll Left & Right (QC): 6 Sit to Lying (QC): 6 Lying-Sitting on Side/Bed(QC): 6 Sit to Stand (QC): 6 Chair/Qzc-ed-Gjnfr Xfer(QC): 6 Walk 10 feet (QC): 6 Walk 50ft with 2 Turns (QC): 6 PT Plan Treatment/Plan Treatment Plan: Continue Plan of Care Treatment Plan: Bed Mobility, Education, Functional Activity Adan, Functional Strength, Gait, Safety, Therapeutic Exercise, Transfers Treatment Duration: Aug 21, 2022 Frequency: 6 times per week Estimated Hrs Per Day: .25 hour per day Patient and/or Family Agrees t: Yes Time Time In: 1025 Time Out: 1048 DATE: Aug 15, 2022 Total Billed Treatment Time: 23 Total Billed Treatment 1 visit FA x 2 23 min ESTELA RENDON PT Aug 15, 2022 11:01
[2022-08-15 15:37] VITALS: BP 127/78
[2022-08-15 20:00] VITALS: BP 103/64
[2022-08-15] MEDS: MICONAZOLE 2% POWDER (DESENEX AF) 90 GM TOP SCH (20:00)
[2022-08-16] VITALS: BP 112/59
[2022-08-16 03:32] VITALS: BP 129/69
[2022-08-16 06:04] LABS: BASOPHILS # (AUTO) 0.1 10^3/uL (0.0-0.1); BASOPHILS % (AUTO) 1 % (0-10); EOSINOPHILS # (AUTO) 0.2 10^3/uL (0.0-0.3); EOSINOPHILS % (AUTO) 3 % (0-10); HEMATOCRIT 36 % (35-52); HEMOGLOBIN 11.5 g/dL (11.5-16.0); LYMPHOCYTES # (AUTO) 2.3 10^3/uL (1.0-4.0); LYMPHOCYTES % (AUTO) 36 % (12-44); MEAN CORPUSCULAR HEMOGLOBIN 28 pg (25-34); MEAN CORPUSCULAR HGB CONC 32 g/dL (32-36); MEAN CORPUSCULAR VOLUME 88 fL (80-99); MEAN PLATELET VOLUME 10.6 fL (9.0-12.2); MONOCYTES # (AUTO) 0.9 10^3/uL (0.0-1.0); MONOCYTES % (AUTO) 14 % (0-12); NEUTROPHILS # (AUTO) 2.9 10^3/uL (1.8-7.8); NEUTROPHILS % (AUTO) 46 % (42-75); PLATELET COUNT 241 10^3/uL (130-400); WHITE BLOOD COUNT 6.4 10^3/uL (4.3-11.0)
[2022-08-16 06:22] LABS: ALBUMIN 2.2 GM/DL (3.2-4.5); BILIRUBIN,TOTAL 0.9 MG/DL (0.1-1.0); CREATININE SERUM 0.77 MG/DL (0.60-1.30); MAGNESIUM 1.6 MG/DL (1.6-2.4); POTASSIUM 3.5 MMOL/L (3.6-5.0); TOTAL PROTEIN 5.1 GM/DL (6.4-8.2)
[2022-08-16] MEDS: POTASSIUM CL 10MEQ/50ML IVPB 50 ML IV SCH (06:44)
[2022-08-16] MEDS: KCL 20 MEQ TAB (K-DUR) PO SCH (06:45)
[2022-08-16] MEDS: MAGNESIUM 1 GM/100 ML IVPB 100 ML IV SCH ×3 (06:45→10:20)
[2022-08-16] MEDS: LEVOTHYROXINE 100 MCG (LEVOTHROID) TAB PO SCH (06:51)
[2022-08-16] MEDS ORDERED: KCL 20 MEQ TAB (K-DUR) PO SCH ×2 (07:00)
--- NOTE | 2022-08-16 07:50 | Cardiology Progress Note ---
Subjective Date Seen by Provider: Aug 16, 2022 Time Seen by Provider: 07:30 Subjective/Events-last exam Pt was moved to room 423. She denies CP, SOB, and palpitations. She does have some left side pain when trying to sleep on her side at night. Her biggest concern is the edema in her feet and ankles, which she said became tender to the touch yesterday. She has had no syncope, but did become slightly dizzy after ambulating and showering yesterday. She was happy that she ate turkey yesterday without feeling nauseated, as that was the first time in months she had been able to do that. Dr. Shankar: I am following her due to cardiac arrest. She was sitting up in a chair on the medical unit. She feels ready to go home. Her chest discomfort has improved. She is complaining about peripheral edema. She was taking hydrochlorothiazide for this at home. She denies dyspnea at rest, palpitations, or syncope. Certain portions of this document may have been dictated utilizing voice recognition technology. Inherent to this technology, typographical and grammatical errors may exist. As much as I am diligent to identify and correct these mistakes, some errors may remain in the document. Focused Exam Respiratory: Lungs Clear, Normal Breath Sounds, No Accessory Muscle Use, No R espiratory Distress Cardiovascular: Regular Rate, Rhythm, No Murmur Skin: normal color, warm/dry Objective-Cardiology Exam Last Set of Vital Signs Vital Signs 08/15/22 08/16/22 14:00 08:11 Temp 36.3 Pulse 79 Resp 18 B/P (MAP) 144/75 (98) Pulse Ox 96 O2 Delivery Room Air O2 Flow Rate 2.00 I&O Intake and Output 08/16/22 00:00 Intake Total 2834 ml Output Total 475 ml Balance 2359 ml Intake Oral 1684 ml IV Total 1150 ml Output Urine Total 475 ml # Voids 1 # Bowel Movements 1 General: Alert, Oriented X3, Cooperative, No Acute Distress HEENT: Atraumatic, EOMI Neck: Supple Lungs: Clear to Auscultation, Normal Air Movement Heart: Regular Rate, No Murmurs Abdomen: Soft, No Tenderness Extremities: Other (+2 pedal edema bilat) Skin: No Significant Lesion Neuro: Normal Speech, Other (ambulated yesterday) Psych/Mental Status: Mental Status NL, Mood NL Other physical findings Dr. Shankar: General: Alert. No acute distress. She is morbidly obese. Eye: No xanthelasma. HENT: Normocephalic. Neck: Jugular venous pressure does not appear elevated. Respiratory: Lungs are clear to auscultation. Respirations are non-labored. Breath sounds are equal. Symmetrical chest wall expansion. Cardiovascular: Normal rate. Regular rhythm. No murmur. No gallop. 1+ bilateral pretibial edema. Gastrointestinal: Soft. Normal bowel sounds. Skin: Warm. Dry. Neurologic: Alert and oriented to person, place, time. Cranial nerves 3-11 grossly intact. Psychiatric: Cooperative. Appropriate mood & affect. Results Lab Laboratory Tests 08/16/22 05:32 A/P-Cardiology Admission Diagnosis (1) Cardiac arrest Status: Acute Assessment & Plan: Most likely due to severe electrolyte abnormalities at the time of admission. There is no indication for a LifeVest or defibrillator at this time. I will plan on an outpatient event recorder at the time of discharge. (2) Ventricular fibrillation Status: Acute Assessment & Plan: This seems to be the cause of the cardiac arrest and this occurred when she had severe hypokalemia and hypomagnesemia that were probably brought on by vomiting, diarrhea and the fact she was taking hydrochlorothiazide. I have ordered an outpatient 2-week [employer] event monitor. If she is discharged on a weekday during normal business hours, before she leaves the facility, she can go to outpatient registration and register as an outpatient and then they will bring her to cardiology to get the monitor. They cannot put the monitor on while she is an inpatient in a room. (3) Primary hypertension Assessment & Plan: I discontinued the hydrochlorothiazide and started her on losartan and she has been reasonably normotensive. (4) Edema of lower extremity due to peripheral venous insufficiency Assessment & Plan: I suspect this is dependent edema due to her morbid obesity. Hydrochlorothiazide does not typically help with this condition. On the other hand, when she presented to the hospital she had severe hypokalemia that was predominantly due to vomiting and diarrhea. However, the hydrochlorothiazide also made this worse. I would suggest we try her on a low-dose of spironolactone. This does not carry the risk of hypokalemia. Rather, this helps patients retain potassium. (5) Elevated troponin Status: Acute Assessment & Plan: She probably had a small type II non-ST elevation myocardial infarction due to the cardiac arrest. I will consider a nuclear stress test following discharge. (6) Chest pain Status: Acute Assessment & Plan: This was most likely musculoskeletal chest discomfort due to the patient having CPR at the time of her cardiac arrest. Her chest discomfort has been improving. (7) Morbid obesity Status: Chronic Assessment & Plan: She needs to work on weight loss. She has been counseled in this regard. She would be a good candidate for a bariatric surgical consultation following discharge. Assessment/Plan (1) Cardiac arrest Assessment & Plan: Ischemic evaluation needed outpatient after discharge. Will attempt a 2-day protocol nuclear stress test if able based on body habitus. (2) Ventricular fibrillation Assessment & Plan: outpatient event recorder needed at time of discharge; defibrillator not needed currently (3) Chest pain Assessment & Plan: Most likely due to musculoskeletal chest pain from CPR. (4) Primary hypertension Assessment & Plan: Stopped hydrochlorothiazide, started low dose losartan (5) Elevated troponin Assessment & Plan: Likely due to type II non-ST elevation myocardial infarction due to supply/demand mismatch (6) Morbid obesity Assessment & Plan: She needs to work on weight loss. She was counseled in this regard. Diagnosis/Problems Diagnosis/Problems (1) Cardiac arrest Status: Acute (2) Ventricular fibrillation Status: Acute (3) Elevated troponin Status: Acute (4) Morbid obesity Status: Chronic Supervisory-Addendum Brief Verification & Attestation Participated in pt care: history, MDM, physical Personally performed: history, MDM, supervision of care Care discussed with: Medical Student Procedures: n/a Results interpretation: Verified all documentation I independently performed my own history and physical and physical examination. I formulated my own impression and plan. I also reviewed the documentation of the medical student. JOVANA KEMP Aug 16, 2022 07:50 JASON SHANKAR JR, MD Aug 16, 2022 09:16
[2022-08-16 08:11] VITALS: BP 144/75
[2022-08-16] MEDS: MICONAZOLE 2% POWDER (DESENEX AF) 90 GM TOP SCH (09:00)
[2022-08-16] MEDS ORDERED: SPIRONOLACTONE 25 MG (ALDACTONE) TAB PO SCH (09:30)
--- NOTE | 2022-08-16 09:36 | Physical Therapy Daily Note ---
PT Daily Note-Current Subjective Patient reports she is feeling much better today and wants to go home. Agrees to PT. Pain Section J - Health Conditions 1. Rarely or not at all 2. Occasionally 3. Frequently 4. Almost constantly 8. Unable to answer Pain Effect on Sleep: 1 Pain Interference with Therapy: 1 Pain Interference w/Day-to-Day: 1 Transfers SCALE: Activities may be completed with or without assistive devices. 7-Wpstkedklt-oayakpa completes the activity by him/herself with no assistance from a helper. 5-Set-up or Clean-up Assistance-helper sets up or cleans up; patient completes activity. [place] assists only prior to or following the activity. 4-Supervision or Touching Assistance-helper provides verbal cues and/or touc angelo/steadying and/or contact guard assistance as patient completes activity. Assistance may be provided throughout the activity or intermittently. 3-Partial/Moderate Assistance-helper does LESS THAN HALF the effort. [place] lifts, holds or supports trunk or limbs, but provides less than half the effort. 2-Substantial/Maximal Assistance-helper does MORE THAN HALF the effort. [place] lifts or holds trunk or limbs and provides more than half the effort. 9-Dowdgdqhm-cgtvvg does ALL the effort. Patient does none of the effort to complete the activity. Or, the assistance of 2 or more helpers is required for the patient to complete the activity. If activity was not attempted, code reason: 7-Patient Refused. 9-Not Applicable-not attempted and the patient did not perform the activity before the current illness, exacerbation or injury. 10-Not Attempted due to Environmental Limitations-(lack of equipment, weather restraints, etc.). 88-Not Attempted due to Medical Conditions or Safety Concerns. Sit to Stand (QC): 6 Gait Training Distance: 250' Walk 10 feet (QC): 6 Walk 50 ft with 2 Turns(QC): 6 Walk 150 ft (QC): 6 Gait Assistive Device: FWW safe and functional with no deviation Assessment Patient is currently at independent PLOF with all gross motor skills and does not require continued skilled PT intervention. PT to dismiss from services at this time. Physician and SW notified. PT Respiratory Therapy Aide Goals Respiratory Therapy Aide Goals PT Respiratory Therapy Aide Goals Time Frame: Aug 21, 2022 Roll Left & Right (QC): 6 Sit to Lying (QC): 6 Lying-Sitting on Side/Bed(QC): 6 Sit to Stand (QC): 6 Chair/Jjy-nv-Lnzve Xfer(QC): 6 Walk 10 feet (QC): 6 Walk 50ft with 2 Turns (QC): 6 PT Plan Treatment/Plan Treatment Plan: Discontinue PT, goals met Treatment Plan: Bed Mobility, Education, Functional Activity Adan, Functional Strength, Gait, Safety, Therapeutic Exercise, Transfers Treatment Duration: Aug 21, 2022 Frequency: 6 times per week Estimated Hrs Per Day: .25 hour per day Patient and/or Family Agrees t: Yes Time Time In: 910 Time Out: 922 DATE: Aug 16, 2022 Total Billed Treatment Time: 12 Total Billed Treatment 1 visit FA 12 min ESTELA RENDON PT Aug 16, 2022 09:36
[2022-08-16] MEDS: LOSARTAN 25 MG (COZAAR) TAB PO SCH (10:18)
[2022-08-16] MEDS: AtorvaSTATin TABLET 10 MG TABLET PO SCH (10:19)
[2022-08-16] MEDS: FLUTICASONE NASAL SPRAY (FLONASE) 16 GM BTL NS SCH (10:20)
[2022-08-16] MEDS: ENOXAPARIN 60 MG/0.6 ML (LOVENOX) SYR SC SCH (10:20)
[2022-08-16] MEDS ORDERED: MAGN400T50 PO ×2 (11:18)
[2022-08-16] MEDS ORDERED: SPIR25TA5 PO ×2 (11:18)
[2022-08-16] MEDS ORDERED: LOSA25TA41 PO ×2 (11:18)
[2022-08-16] MEDS ORDERED: POTA-51 PO ×2 (11:18)
--- NOTE | 2022-08-16 11:19 | Discharge Inst-Simple/Standard ---
Discharge Inst-Standard Patient Instructions/Follow Up Plan of Care/Instructions/FU: Please continue to take your medications as written. Please follow up with your primary care doctor to follow up this hospital stay. Activity as Tolerated: Yes Discharge Diet: ADA Diet Return to The Hospital For: Chest pain, shortness of breath, fever, weakness, if you feel you are getting worse. CHRISTY SHEEHAN MD Aug 16, 2022 11:19 am
[2022-08-16 11:20] VITALS: BP 155/73
--- NOTE | 2022-08-16 12:00 | D/C HH Face to Face Order ---
D/C Face to Face Orders Instructions for Patient Via [facility], Patient Instructions/FollowUp: Please follow up with Dr Ramires and Dr Shankar to follow up this hospital stay. Physician to follow Patient: Dr Ramires Discharge Diet for Home: ADA Diet, Low Sodium Diet Patient Data-Allergies,Ht & Wt Patient Allergies: Coded Allergies: semaglutide (Verified Adverse Reaction, Severe, Vomiting, 08/12/22) Home Health Need/Face to Face Date of Face to Face: Aug 16, 2022 Clinical Findings: Generalized weakness and fatigue I have seen Pt druk-xp-[id number]: Yes Discharged To: Home Diagnosis/Conditions: Ventricular fibrillation and cardiac arrest Patient is Homebound due to: Muscle weakness Homebound Status Due to the above stated illness, injury or surgical procedure (medical condition or diagnosis) and associated clinical findings, the patient is homebound because of his/her inability to leave home except with aid of a suppor tive device and/or person AND leaving the home requires a considerable and taxing effort or is medically contraindicated. Pt req the following assistanc: Aid of another person, Walker Home Health Nursing Orders Home Health Services Order: Nursing Services, Physical Therapy-Evaluate & Treat Home Health Infusion Therapy Line Start Date: Aug 11, 2022 Therapy Orders Therapy Orders: Physical Therapy, PT to assess for OT Therapy Specific Orders: Eval assistive deivces, Teach enviro modifications /safety, Gait training, Increase strength/endurance Certify Stmt I certify that this patient is under my care and that I, a nurse practitioner or a physician; a veterinary assistant working with me, had a face to face encounter that - meets the physician face to face encounter requirements with this patient as dated. CHRISTY SHEEHAN MD Aug 16, 2022 11:59
--- NOTE | 2022-08-16 12:01 | Discharge Summary ---
Diagnosis/Chief Complaint Date of Admission Aug 12, 2022 at 05:00 Date of Discharge Discharge Date: Aug 16, 2022 Admission Diagnosis Cardiac arrest Primary Care No,Local Physician Discharge Diagnosis (1) Cardiac arrest Status: Acute (2) Ventricular fibrillation Status: Acute (3) Elevated troponin Status: Acute (4) Morbid obesity Status: Chronic Discharge Summary Discharge Physical Exam Allergies: Coded Allergies: semaglutide (Verified Adverse Reaction, Severe, Vomiting, 08/12/22) Vitals & I&Os Vital Signs Date Time Temp Pulse Resp B/P (MAP) Pulse Ox O2 Delivery O2 Flow Rate FiO2 08/16/22 13:00 08/16/22 12:47 78 08/16/22 11:20 36.3 20 98 Room Air 08/15/22 14:00 2.00 General Appearance: No Apparent Distress, Obese Respiratory: Lungs Clear, No Respiratory Distress Cardiovascular: Regular Rate, Rhythm, No Murmur Neurologic/Psychiatric: Alert, Oriented x3 Hospital Course Patient was admitted to the hospital secondary to syncope and electrolyte abnormalities who subsequently suffered a cardiac arrest due to ventricular fibrillation. ROSC was obtained and she did very well neurologically and thus did not require therapeutic hypothermia. Her electrolyte abnormalities were corrected and she had no further arrhythmias. Cardiology was consulted and recommended outpatient ischemic evaluation. They also requested outpatient ZIO event monitor which Dr. Shankar is ordered. I called and updated her primary care physician, Dr. Ramires at this hospitalization. She is to follow-up with him next week for labs. She was discharged home with home health in stable and improved condition. Labs (last 24 hrs) Microbiology 08/13/22 Urine Culture - Final, Complete Escherichia coli 08/13/22 MRSA Screen - Final, Complete MRSA not isolated Patient resulted labs reviewed. Pending Labs Imaging: Reviewed Imaging Films, Reviewed Imaging Report Discussion & Recommendations Discharge Planning: >30 minutes discharge planning Discharge Home Medications: Active Scripts Active Potassium Chloride 20 Meq Tablet.er 40 Meq PO DAILY Magnesium Oxide 400 Mg Magnesium Tablet 400 Mg PO DAILY Spironolactone 25 Mg Tablet 25 Mg PO DAILY Losartan Potassium 25 Mg Tablet 12.5 Mg PO DAILY Reported Vitamins For Hair (Multivitamin) 400 Mcg-400 Mcg Tablet 1 Each PO DAILY Pravastatin Sodium 40 Mg Tablet 40 Mg PO DAILY Omeprazole 20 Mg Tab.rap.dr 20 Mg PO DAILY PRN Levothyroxine Sodium 100 Mcg Tablet 100 Mcg PO DAILY Instructions to patient/family Please see electronic discharge instructions given to patient. CHRISTY SHEEHAN MD Aug 16, 2022 12:01
== END 2022-08-16 13:00 | disposition home health service (06) | DRG 281 ==
LOC: EDUNIT# 22:07 → ER 22:08 → 4TH 08-12 02:40 → ICU 08-12 03:59 → OBSVTOIN 08-12 05:00 → 4TH 08-15 15:00
PROVIDERS: ADMIT Internal Medicine; ATTEND Internal Medicine
PROC: 5A2204Z Restoration of Cardiac Rhythm, Single (ICD-10-PCS; principal; 2022-08-12)
PROC: 5A12012 Performance of Cardiac Output, Single, Manual (ICD-10-PCS; 2022-08-12)
DX: I49.01 Ventricular fibrillation (principal); I21.A1 Myocardial infarction type 2; E87.20 Acidosis, unspecified; N39.0 Urinary tract infection, site not specified; Z68.45 Body mass index [BMI] 70 or greater, adult; I46.9 Cardiac arrest, cause unspecified; E87.6 Hypokalemia; E83.42 Hypomagnesemia; E66.01 Morbid (severe) obesity due to excess calories; R11.2 Nausea with vomiting, unspecified; B96.20 Unspecified Escherichia coli [E. coli] as the cause of diseases classified elsewhere; E11.43 Type 2 diabetes mellitus with diabetic autonomic (poly)neuropathy; K31.84 Gastroparesis; R07.89 Other chest pain; D72.829 Elevated white blood cell count, unspecified; I87.2 Venous insufficiency (chronic) (peripheral)
CPT/HCPCS: 36415; 71045; 80048; 80053; 80061; 80306; 80320; 81000; 83036; 83735; 83874; 84100; 84132; 84439; 84443; 84484; 85007; 85025; 85027; 85610; 85730; 87077; 87081; 87088; 87186; 93005; 93041; 93306

== ENCOUNTER → 2022-08-16 | Outpatient (CLI) | payer OTHER ==
[~2022-08-16] MED LIST: HYDR25TA4 PO; LEVO100T7 PO; LOSA25TA41 PO; MAGN400T50 PO; MULT-577 PO; OMEP-401 PO; POTA-51 PO; POTA99TA18 PO; PRAV40TA2 PO; SPIR25TA5 PO
== END ==
LOC: CARD 13:56
PROVIDERS: ATTEND Internal Medicine Cardiovascular Disease
DX: I49.01 Ventricular fibrillation (principal)
CPT/HCPCS: 93246

== ENCOUNTER → 2022-10-03 | Outpatient (CLI) | payer OTHER ==
[~2022-10-03] VITALS: Ht 165 cm; Wt 195.0 kg
[~2022-10-03] MED LIST changes: +CATHETER FLUSH 10 ML SYR IVP PRN; +REGADENOSON 0.4 MG/5 ML SYR (LEXISCAN) IV ONE
== END ==
LOC: CARD 07:57
PROVIDERS: ATTEND Internal Medicine Cardiovascular Disease
DX: I49.01 Ventricular fibrillation (principal)

== ENCOUNTER 2022-10-30 12:57 | Day surgery (SDC) | payer OTHER ==
[~2022-10-30] VITALS: Ht 165.1 cm; Wt 186.7 kg
[2022-10-30] VITALS (11 sets, daily range): BP systolic 103–143; BP diastolic 59–79
[~2022-10-30 12:57] MED LIST changes: -CATHETER FLUSH 10 ML SYR IVP PRN; -REGADENOSON 0.4 MG/5 ML SYR (LEXISCAN) IV ONE
[2022-10-30] MEDS ORDERED: HEParin (CATH LAB) 2,000 ML IV ONE (13:08)
[2022-10-30] MEDS ORDERED: NS IV 1000 ML 1,000 ML ONE (13:08)
[2022-10-30] MEDS ORDERED: LIDOCAINE 1% INJ 20 ML VIAL ONE ×2 (13:08→14:48)
[2022-10-30] MEDS ORDERED: NS IV 1000 ML 1,000 ML IV SCH ×2 (13:15→15:15)
[2022-10-30 13:39] LABS: BILIRUBIN,URINE NEGATIVE (NEGATIVE); CLARITY,URINE CLEAR; COLOR,URINE YELLOW; GLUCOSE, URINE (UA) NEGATIVE (NEGATIVE); KETONES,URINE NEGATIVE (NEGATIVE); LEUKOCYTE ESTERASE ,URINE 1+ (NEGATIVE); NITRITE,URINE NEGATIVE (NEGATIVE); PROTEIN,URINE NEGATIVE (NEGATIVE)
[2022-10-30 13:40] LABS: HEMATOCRIT 39 % (35-52); HEMOGLOBIN 12.4 g/dL (11.5-16.0); MEAN CORPUSCULAR HEMOGLOBIN 28 pg (25-34); MEAN CORPUSCULAR HGB CONC 32 g/dL (32-36); MEAN CORPUSCULAR VOLUME 88 fL (80-99); MEAN PLATELET VOLUME 10.2 fL (9.0-12.2); PLATELET COUNT 324 10^3/uL (130-400); WHITE BLOOD COUNT 6.9 10^3/uL (4.3-11.0)
[2022-10-30 13:48] LABS: BACTERIA,URINE MODERATE /HPF
--- NOTE | 2022-10-30 13:52 | Diagnostic Imaging Report ---
HISTORY: CODE BLUE, cardiac arrest. COMPARISON: 08/14/2022. TECHNIQUE: Frontal view of the chest. FINDINGS: Lung volumes are normal. No consolidation is seen. There is mild interstitial edema. There is mild cardiomegaly. No pleural effusion or pneumothorax is seen. IMPRESSION: 1. Mild cardiomegaly with mild interstitial edema. Dictated by: Dictated on workstation # [id number]
[2022-10-30 13:54] LABS: PROTHROMBIN TIME PATIENT 13.7 SEC (12.2-14.7)
--- NOTE | 2022-10-30 14:02 | Cardiac Procedure Note-CS/ASA ---
Pre-Procedure Note Pre-Op Procedure Note Date of Available H&P: Oct 24, 2022 Date H&P Reviewed: Oct 30, 2022 Time H&P Reviewed: 14:01 History & Physical: H&P Reviewed, Patient Examed, No changes noted Pre-Operative Diagnosis: CAD Conscious Sedation Pre-Proced Time 14:02 ASA Score 3 For ASA 3 and 4: Consider anesthesia and medical clearance. Also, for patients with a history of failed moderate sedation consider anesthesia. Airway Lungs Heart ASA score ASA 1: a normal healthy patient ASA 2: a patient with a mild systemic disease (mid diabetes, controlled hypertension, obesity ASA 3: a patient with a severe systemic disease that limits activity (angina, COPD, prior Myocardial infarction) ASA 4: a patient with an incapacitating disease that is a constant threat to life (CHF, renal failure) ASA 5: a moribund patient not expected to survive 24 hrs. (ruptured aneurysm) ASA 6: a declared brain- patient whose organs are being harvested. For emergent operations, add the letter E after the classification Mallampati Classification Grade 3 Sedation Plan Analgesia, Amnesia, Plan communicated to team members, Discussed options with patient/fam, Discussed risks with patient/fam The patient is an appropriate candidate to undergo the planned procedure, sedation, and anesthesia. The patient immediately re-assessed prior to indication. WILBUR ALBRIGHT MD Oct 30, 2022 14:02
[2022-10-30] MEDS ORDERED: VERAPAMIL 5 MG/2 ML (CALAN) VIAL IV ONE (14:05)
[2022-10-30] MEDS ORDERED: MIDAZOLAM 5 MG/5 ML (VERSED) VIAL ONE (14:05)
[2022-10-30] MEDS ORDERED: fentaNYL INJ 100 MCG/2 ML AMP ONE ×2 (14:05→14:49)
[2022-10-30 14:06] LABS: ALBUMIN 3.7 GM/DL (3.2-4.5); BILIRUBIN,TOTAL 0.6 MG/DL (0.1-1.0); CALCIUM 9.6 MG/DL (8.5-10.1); CREATININE SERUM 1.18 MG/DL (0.60-1.30); POTASSIUM 3.8 MMOL/L (3.6-5.0)
[2022-10-30] MEDS ORDERED: HEParin 1000 UNIT/ML (10ML VIAL) FOR BOLUS ONE (14:06)
[2022-10-30] MEDS ORDERED: NITRO DRIP 25000 MCG/D5W 0 ML IV ONE (14:08)
[2022-10-30] MEDS ORDERED: POTA-51 PO (14:08)
[2022-10-30] MEDS ORDERED: SPIR25TA PO (14:08)
[2022-10-30] MEDS ORDERED: LOSA25TA41 PO (14:08)
[2022-10-30] MEDS ORDERED: ASPI-1238 PO (14:08)
[2022-10-30] MEDS ORDERED: ONDA4TAB11 SL (14:08)
[2022-10-30] MEDS ORDERED: ESCI20TA39 PO (14:08)
[2022-10-30] MEDS ORDERED: MAGN400T39 PO (14:08)
[2022-10-30] MEDS ORDERED: FURO20TA4 PO (14:08)
[2022-10-30] MEDS ORDERED: LORA10TA7 PO (14:08)
[2022-10-30] MEDS ORDERED: ESCI-2 PO (14:10)
[2022-10-30] MEDS ORDERED: MIDAZOLAM 2 MG/2 ML (VERSED) VIAL ONE (14:51)
--- NOTE | 2022-10-30 15:04 | Discharge Inst-Post CATH ---
Discharge Inst-CATH/EP Problems Reviewed?: Yes Post Cardiac Cath/EP D/C Inst Follow Up/Plan Appointment with Dr. Reese's office in 2 to 4 weeks <b>CARDIAC CATH/EP PROCEDURE DISCHARGE INSTRUCTIONS</b> ACTIVITY * Go Home directly and rest. * Limit activity of the leg (or wrist if it was used) for 7 days including aer obics, swimming, jogging, bicycling, etc. * Restrict stair-climbing for 7 days if possible, if not, climb up with your non-cath leg, then bring together on the same step. * Avoid lifting, pushing, pulling or excessive movement of the affected extremi ty for 7 days. * Customary sexual activity may be resumed after 2 days-use caution not to use a position that strains or causes pain to the affected extremity. * No driving for 24 hours. * NO SMOKING. * Avoid straining for bowel movements for 7 days. * Gentle walking on level ground is allowed. * Returning to work will depend on the type of procedure and the results. Your doctor will discuss this with you. CALL YOUR DOCTOR FOR ANY OF THE FOLLOWING: *If bleeding from the puncture site occurs- Apply gentle pressure to site with clean cloth and call your doctor or EMS. * If a knot or lump forms under the skin, increases in size, or causes pain. * If bruising appears to be worsening or moving further down your leg instead of disappearing. * Temperature above 101 F. CARE OF YOUR GROIN INCISION; * Bruising or purple discoloration of the skin near the puncture site is common. * You may shower only, no bathtub bathing for 5 days. Be careful to avoid slipping as your leg may feel stiff. * If a closure device was used on your femoral artery, please see the attached guide regarding care of the device and your leg. * Leave dressing on FOR 24 hours. CARE OF YOUR WRIST INCISION; * Bruising or purple discoloration of the skin near the puncture site is common. * You may shower. * DO NOT submerge wrist. * Leave dressing on FOR 24 hours. WILBUR REESE MD Oct 30, 2022 15:04
--- NOTE | 2022-10-30 15:06 | Cardiac Cath Report ---
Cardiac Cath Report Physician (s)/Nutrition Coordinator (s) Physician WILBUR ALBRIGHT MD Pre-Procedure Diagnosis Pre-Procedure Diagnosis: CAD Post-Procedure Note Procedure Start Date: Oct 30, 2022 Name of Procedure: Left heart catheterization Findings/Procedure Note PROCEDURE NOTE: 47-year-old lady with history of sudden cardiac , ventricular fibrillation, she was scheduled for cardiac catheterization. After explaining the procedure to the patient, all pros and cons were explained, all questions were answered. The patient signed the consent and then she was placed in the cardiac catheterization laboratory. Groin was prepped in SL fashion local anesthesia was used. Attempt to access the right radial artery has failed, sheath placed in the right femoral artery. Leilani' right and left catheter were used to access the coronary system. Leilani right catheter prolapsed to the left ventricular cavity, pressure was measured, pullback LV to aorta was done. At the end of the procedure the sheath was removed. Closure device was deployed FINDINGS: Hemodynamics LV 123/12, end-diastolic pressure of 12 Aorta 119/63 mean of 83 ANATOMY: Left Main is free of obstructive disease Left Anterior Descending has mild disease nonobstructive disease Left Circumflex has mild disease nonobstructive disease Right Coronary Artery is dominant artery with mild disease nonobstructive disease LV Gram was not done, pressure was measured CONCLUSION: 1. Mild coronary artery disease nonobstructive disease 2. Normal left ventricular end-diastolic pressure DISCUSSION AND RECOMMENDATION: Medical therapy is recommended no intervention is warranted Anesthesia Type: Conscious Sedation Estimated blood loss (mL): 20 ml Contrast Amount: 45 ml Total Radiation Dose: 635 mGy Post-Procedure Diagnosis Post-operative diagnosis: Ventricular fibrillation Coronary artery disease Hypertension Hyperlipidemia. WILBUR ALBRIGHT MD Oct 30, 2022 15:06
[2022-10-30] MEDS ORDERED: PATIENT MAY USE OWN MEDS, ALL PO SCH (15:15)
== END 2022-10-30 19:30 | disposition home or self-care (01) ==
LOC: CATH 12:57 → CSD 16:15 → CATH 19:30
PROVIDERS: ATTEND Internal Medicine Cardiovascular Disease
DX: I25.10 Atherosclerotic heart disease of native coronary artery without angina pectoris (principal); I10 Essential (primary) hypertension; E78.5 Hyperlipidemia, unspecified; E66.01 Morbid (severe) obesity due to excess calories; E11.9 Type 2 diabetes mellitus without complications; I49.01 Ventricular fibrillation; E78.2 Mixed hyperlipidemia; Z79.899 Other long term (current) drug therapy; Z79.82 Long term (current) use of aspirin; Z68.44 Body mass index [BMI] 60.0-69.9, adult
CPT/HCPCS: 36415; 71045; 80053; 80061; 81000; 85027; 85610; 85730; 87081; 87088; 93005; 93458